=== PATIENT | female | born 1960 | race Caucasian/White ===

== ENCOUNTER 2018-09-26 17:44 | Inpatient (IN) | payer OTHER ==
--- NOTE | 2018-09-26 12:16 | R.PREADM ---
SCREENING DATE AND TIME 09/26/2018 11:07 (CDT) ANTICIPATED REHAB ADMISSION DATE 09/28/2018 REFERRING FACILITY [facility] REFERRAL DATE AND TIME 09/25/2018 15:14 (CDT) REFERRAL ROOM# [id number] ACUTE ADMIT DATE 09/22/2018 HOSPITALIZED IN LAST 60 DAYS? No Previous Rehabilitation(s): No. ACUTE MED SPA MANAGER/DC WIND TECHNICIAN [facility] REFERRING PHYSICIAN Dr Herrera REHAB FACILITY [facility] CLINICAL LIAISON Cristal Martinez PHYSICIAN REVIEWER Dr. Christiano Smith M.D. MR# [id number] NAME KWAN SHANE ADDRESS [address] [facility] PHONE ZIP [address] DATE OF 1960 AGE 58 SSN# [id number] GENDER female MARITAL STATUS RACE white ADMIT FROM 02 - [facility] PRE-HOSPITAL LIVING SETTING 01 - Home (private home/apt. board/care, assisted living, [facility], transitional living) HOME TYPE AND DETAILS Type of home: single family house # of steps to enter the residence: 3 steps at back of residence # of levels in the residence: 1 PRE-HOSPITAL LIVING WITH Family/Relatives FAMILY SUPPORT Yes PRIMARY FAMILY CONTACT NAME Cj Shane PRIMARY FAMILY CONTACT PHONE [phone] PRIMARY FAMILY CONTACT RELATIONSHIP 1ST EMERGENCY CONTACT Cj Shane 1ST CONTACT PHONE [phone] 1ST CONTACT RELATIONSHIP 2ND EMERGENCY CONTACT Abdi Ellis 2ND CONTACT PHONE [phone] 2ND CONTACT RELATIONSHIP Son PHONE 2ND CONTACT ON ADM.? no PATIENT EMPLOYMENT STATUS Not Working PATIENT EMPLOYER No Employer PAYOR INFORMATION: 1ST PAYOR NAME Martin 1ST PAYOR AUTHORIZATION# [id number] 1ST PAYOR UPDATE DUE 10/09/2018 1ST PAYOR INJURY/ILLNESS DUE TO ACCIDENT? No ANOTHER GREEN PARTY RESPONSIBLE? No PRIMARY REHAB/ACUTE DIAGNOSIS: Sponddylolisthesis at L4-5 with Bilateral facet joint degeneration, severe spinal stenosis ONSET DATE 09/22/2018 REHAB IMPAIRMENT CATEGORY (BATOOL): 04 Traumatic spinal cord injury (TSCI) MEETS 60% rule PRIMARY DIAGNOSIS-RELATED SURGERIES: INTERVENTIONS: - DVT/PE Activity management Labs Medications - GERD Altered diet Medications RISK FOR COMPLICATIONS: - GERD Pain Alteration in sleep Aspiration GERD SUMMARY OF ACUTE HOSPITALIZATION: Pt. is a 58 yo Right-handed white female. She has past medical history significant for Sponddylolisthesis at L4-5 with Bilateral facet joint de generation, severe spinal stenosis that failed conservative treatment. Pre-morbidly, Pt. was independent/mod-I in Self-Care and Locomotion; and she had good Endurance, Safe ty Awareness, Transfers Control, Balance, Social Cognition, and Communication. Currently, she has deficits of Self-Care, Transfers Control, Locomotion, Balance, and Safety Awarenes s. Pt. is now referred to [facility] for acute in-patient rehabilitation in order to maximize patient's functional independence in activities of daily living, strength, ROM, and mobi lity. Patient has realistic goal of being discharged at assistance level 6-Catarina to reside at Home with Fam oracio/Relatives. PAST MEDICAL HISTORY Arthritis Cancer - HCC GERD PAST SURGICAL HISTORY: COLONOSCOPY HYSTERECTOMY Cholecystectomy Left Knee Sx Right Wrist Sx MEDICATION ALLERGIES: No Known Drug Allergies (NKDA) ENVIRONMENTAL ALLERGIES: None Known - Substance Allergies None Known - Other Allergies None Known CODE STATUS: Do not resuscitate(DNR) WEIGHT/HEIGHT/BMI: WEIGHT 138 lbs HEIGHT 5' 5" BMI 23 DIET: - Diet Type Regular - Diet - Solid Texture Regular - Diet - Liquid Texture Regular - Tube Feed N/A SKIN DIAGRAM: Incision on Back; extent - small; stage - NS(Not Stageable). Treatment - Per Physician's Orders. REVIEW OF SYSTEMS: - Gen Alert and awake Lying in bed No apparent distress Oriented to: person, time, and place - Vital Signs Vital signs stable, afebrile - CVS RRR VITAL SIGNS Temperature: 97.4 F SBP/DBP: 112/54 Pulse: 88 Resp: 18 Vital signs stable, afebrile MEDICATIONS/TREATMENT: Other- See attached MAR (Medication Administration Record) [id number].pdf. CURRENT SPHINCTER CONTROL: Pre-hospital bladder status: continent Pre-hospital bowel status: continent DETAILED CURRENT FUNCTIONAL STATUS: - Walking score based on distance walked: 2(9829ft) FUNCTIONAL STATUS: - Self-Care A. Eating Ind sup B. Grooming Ind sup C. Bathing Ind modA D. Dressing - Upper Ind modA E. Dressing - Lower Ind modA F. Toileting Ind modA - Sphincter Control G. Bladder control Ind Catarina H. Bowel control Ind Catarina - Transfers Control I. Bed/Chair/Wheelchair Ind modA J. Toilet Ind modA K. Tub/Shower Ind modA - Locomotion L. Walk/Wheelchair (W) Ind modA M. Stairs Ind ADNO - Communication N. Comprehension (B) Catarina sup O. Expression (B) Catarina sup - Social Cognition P. Social Interaction Catarina sup Q. Problem Solving Catarina sup R. Memory Ind Catarina - Endurance Good - Balance Good - Safety Awareness Good CURRENT FUNC. DEFICITS: Self-Care, Transfers Control, Communication, Social Cognition, and Locomotion THERAPY NOTES FROM ACUTE CARE: Attached. SPECIAL NEEDS: - Safety Concerns Skin breakdown precautions needed due to skin breakdown risk PATIENT NEEDS ACTIVE AND ONGOING THERAPEUTIC INTERVENTION OF MULTIPLE THERAPY DISCIPLINES, INCLUDING: - Dietary and Nutrition Adequate Nutrition. Nutritional Education. Nutritional Supplements. PATIENT NEEDS CLOSE MEDICAL SUPERVISION BY A REHABILITATION PHYSICIAN FOR: Coordination of Treatment Team Post-Op Complications Wound Care PATIENT REQUIRES 24X7 REHAB NURSING FOR MEDICAL AND FUNCTIONAL MGT. OF THE FOLLOWING DEFICITS: ADL's Ambulation Bowel and Bladder Management Cognition Communication Disease Management Medication Management Patient/Family Education Providing Safe Environment Skin Integrity Transfers PATIENT REQUIRES INTENSIVE, COORDINATED INTERDISCIPLINARY APPROACH TO REHAB: Arranging Home Equipment/Services Discharge Planning Family Intervention/Training Iron Handler/Case Management PATIENT REHAB POTENTIAL: Ai SHANE is able and expected to receive 3 hours of individualized therapy daily on at least 5 of every 7 days DMarco SHANE's prognosis for significant practical improvement within a reasonable period of time appears G ood Expected level of measurable improvement will be of a practical value to DMarco SHANE's functional capacity or adaptations to impairments Has a viable Discharge Plan Medically appropriate; condition is sufficiently stable to participate in intensive rehab program DISCHARGE PLAN: - Estimated Length of Stay (days) 27. - Consensus on plan Discharge plan has been discussed with primary caregiver. Patient/Family is in agreement with the paul n. Primary caregiver is in agreement with the plan. - Patient/Family Goals Return home with assistance. - Planned Living Setting Upon Discharge Home, to live with Family/Relatives. - N/A Patient is a 58 year old female that lived in a one story home wtih her . Other than being in severe pain, she was very active. She tried multiple areas of improvement and was unsuccessful, the refore Dr. Herrera performed surgery that included a fusion and decompression. The patient tolerated th e surgery very well but to to the debilitation prior to the surgery and the surgery itself, it is nec essary for the patient to come to rehab in order to reagin her strength prior to discharging home. S he is now medically stable but in need of 24-hour nursing, doctor supervision and to participate in 3 hours of therapy a day/15 hours per week and receive care with an intensive interdisciplinary approach. RECOMMENDED CARE LEVEL: IRF RECOMMENDATION DETAILS: Recommended Admission to Comprehensive Rehabilitation Program to Increase Functional [place] SCREENER'S COMPLETENESS CONFIRMATION: - Screening Confirmation The patient data collection on this preadmission screening form is finished PHYSICIANS REVIEW AND ADMISSION DETERMINATION Admit - Based on my review of the Pre-Admission Screening results, in my medical judgment and experie nce, I concur with the findings and recommend admission to [facility], as this patient requires an IRF level of care. SIGNATURE PANEL: Clinical Liaison - [electronically] signed by Summer Perez Pawn Shop Keeper on 09/26/2018 at 12:06 (C DT) Varnish Supervisor - [electronically] signed by Cristal Nevarez RN on 09/26/2018 at 12:18 (CDT) Physician Reviewer - /___/ :___
--- NOTE | 2018-09-26 13:16 | R.PREADM ---
SCREENING DATE AND TIME 09/26/2018 12:50 (CDT) ANTICIPATED REHAB ADMISSION DATE 09/26/2018 REFERRING FACILITY [facility] REFERRAL DATE AND TIME 09/26/2018 12:50 (CDT) REFERRAL ROOM# [id number] ACUTE ADMIT DATE 09/22/2018 HOSPITALIZED IN LAST 60 DAYS? No Previous Rehabilitation(s): No. ACUTE TERRITORY SERVICE REPRESENTATIVE/DC VALUE STREAM COACH [facility] REFERRING PHYSICIAN Dr Herrera REHAB FACILITY [facility] CLINICAL LIAISON Cristal Martinez PHYSICIAN REVIEWER Dr. Christiano Smith M.D. MR# [id number] NAME KWAN SHANE ADDRESS [address] [facility] PHONE ZIP [address] DATE OF 1960 AGE 58 SSN# [id number] GENDER female MARITAL STATUS RACE white ADMIT FROM 02 - [facility] PRE-HOSPITAL LIVING SETTING 01 - Home (private home/apt. board/care, assisted living, prison, transitional living) HOME TYPE AND DETAILS Type of home: single family house # of steps to enter the residence: 3 steps at back of residence # of levels in the residence: 1 PRE-HOSPITAL LIVING WITH Family/Relatives FAMILY SUPPORT Yes PRIMARY FAMILY CONTACT NAME Cj Shane PRIMARY FAMILY CONTACT PHONE [phone] PRIMARY FAMILY CONTACT RELATIONSHIP 1ST EMERGENCY CONTACT Cj Shane 1ST CONTACT PHONE [phone] 1ST CONTACT RELATIONSHIP 2ND EMERGENCY CONTACT Abdi Ellis 2ND CONTACT PHONE [phone] 2ND CONTACT RELATIONSHIP Son PHONE 2ND CONTACT ON ADM.? no PATIENT EMPLOYMENT STATUS Not Working PATIENT EMPLOYER No Employer PAYOR INFORMATION: 1ST PAYOR NAME Martin 1ST PAYOR AUTHORIZATION# [id number] 1ST PAYOR UPDATE DUE 10/09/2018 1ST PAYOR INJURY/ILLNESS DUE TO ACCIDENT? No ANOTHER CONSTITUTION PARTY RESPONSIBLE? No PRIMARY REHAB/ACUTE DIAGNOSIS: Sponddylolisthesis at L4-5 with Bilateral facet joint degeneration, severe spinal stenosis ONSET DATE 09/22/2018 REHAB IMPAIRMENT CATEGORY (BATOOL): 04 Traumatic spinal cord injury (TSCI) MEETS 60% rule PRIMARY DIAGNOSIS-RELATED SURGERIES: INTERVENTIONS: - DVT/PE Activity management Labs Medications - GERD Altered diet Medications RISK FOR COMPLICATIONS: - GERD Pain Alteration in sleep Aspiration GERD SUMMARY OF ACUTE HOSPITALIZATION: Pt. is a 58 yo Right-handed white female. She has past medical history significant for Sponddylolisthesis at L4-5 with Bilateral facet joint de generation, severe spinal stenosis that failed conservative treatment. Pre-morbidly, Pt. was independent/mod-I in Locomotion and Self-Care; and she had good Endurance, Safe ty Awareness, Transfers Control, Balance, Social Cognition, and Communication. Currently, she has deficits of Self-Care, Transfers Control, Locomotion, Balance, and Safety Awarenes s. Pt. is now referred to [facility] for acute in-patient rehabilitation in order to maximize patient's functional independence in activities of daily living, strength, ROM, and mobi lity. Patient has realistic goal of being discharged at assistance level 6-Catarina to reside at Home with Fam oracio/Relatives. PAST MEDICAL HISTORY Arthritis Cancer - HCC GERD PAST SURGICAL HISTORY: COLONOSCOPY HYSTERECTOMY Cholecystectomy Left Knee Sx Right Wrist Sx MEDICATION ALLERGIES: No Known Drug Allergies (NKDA) ENVIRONMENTAL ALLERGIES: None Known - Substance Allergies None Known - Other Allergies None Known CODE STATUS: Do not resuscitate(DNR) WEIGHT/HEIGHT/BMI: WEIGHT 138 lbs HEIGHT 5' 5" BMI 23 DIET: - Diet Type Regular - Diet - Solid Texture Regular - Diet - Liquid Texture Regular - Tube Feed N/A SKIN DIAGRAM: Incision on Back; extent - small; stage - NS(Not Stageable). Treatment - Per Physician's Orders. REVIEW OF SYSTEMS: - Gen Alert and awake Lying in bed No apparent distress Oriented to: person, time, and place - Vital Signs Vital signs stable, afebrile - CVS RRR VITAL SIGNS Temperature: 97.4 F SBP/DBP: 112/54 Pulse: 88 Resp: 18 Vital signs stable, afebrile MEDICATIONS/TREATMENT: Other- See attached MAR (Medication Administration Record) [id number].pdf. CURRENT SPHINCTER CONTROL: Pre-hospital bladder status: continent Pre-hospital bowel status: continent DETAILED CURRENT FUNCTIONAL STATUS: - Walking score based on distance walked: 2(5149ft) FUNCTIONAL STATUS: - Self-Care A. Eating Ind sup B. Grooming Ind sup C. Bathing Ind modA D. Dressing - Upper Ind modA E. Dressing - Lower Ind modA F. Toileting Ind modA - Sphincter Control G. Bladder control Ind Catarina H. Bowel control Ind Catarina - Transfers Control I. Bed/Chair/Wheelchair Ind modA J. Toilet Ind modA K. Tub/Shower Ind modA - Locomotion L. Walk/Wheelchair (W) Ind modA M. Stairs Ind ADNO - Communication N. Comprehension (B) Catarina sup O. Expression (B) Catarina sup - Social Cognition P. Social Interaction Catarina sup Q. Problem Solving Catarina sup R. Memory Ind Catarina - Endurance Good - Balance Good - Safety Awareness Good CURRENT FUNC. DEFICITS: Self-Care, Transfers Control, Communication, Social Cognition, and Locomotion THERAPY NOTES FROM ACUTE CARE: Attached. SPECIAL NEEDS: - Safety Concerns Skin breakdown precautions needed due to skin breakdown risk PATIENT NEEDS ACTIVE AND ONGOING THERAPEUTIC INTERVENTION OF MULTIPLE THERAPY DISCIPLINES, INCLUDING: - Dietary and Nutrition Adequate Nutrition. Nutritional Education. Nutritional Supplements. PATIENT NEEDS CLOSE MEDICAL SUPERVISION BY A REHABILITATION PHYSICIAN FOR: Coordination of Treatment Team Post-Op Complications Wound Care PATIENT REQUIRES 24X7 REHAB NURSING FOR MEDICAL AND FUNCTIONAL MGT. OF THE FOLLOWING DEFICITS: ADL's Ambulation Bowel and Bladder Management Cognition Communication Disease Management Medication Management Patient/Family Education Providing Safe Environment Skin Integrity Transfers PATIENT REQUIRES INTENSIVE, COORDINATED INTERDISCIPLINARY APPROACH TO REHAB: Arranging Home Equipment/Services Discharge Planning Family Intervention/Training Service Station Console Operator/Case Management PATIENT REHAB POTENTIAL: Ai SHANE is able and expected to receive 3 hours of individualized therapy daily on at least 5 of every 7 days DMarco SHANE's prognosis for significant practical improvement within a reasonable period of time appears G ood Expected level of measurable improvement will be of a practical value to DMarco SHANE's functional capacity or adaptations to impairments Has a viable Discharge Plan Medically appropriate; condition is sufficiently stable to participate in intensive rehab program DISCHARGE PLAN: - Estimated Length of Stay (days) 27. - Consensus on plan Discharge plan has been discussed with primary caregiver. Patient/Family is in agreement with the paul n. Primary caregiver is in agreement with the plan. - Patient/Family Goals Return home with assistance. - Planned Living Setting Upon Discharge Home, to live with Family/Relatives. - N/A Patient is a 58 year old female that lived in a one story home wtih her . Other than being in severe pain, she was very active. She tried multiple areas of improvement and was unsuccessful, the refore Dr. Herrera performed surgery that included a fusion and decompression. The patient tolerated th e surgery very well but to to the debilitation prior to the surgery and the surgery itself, it is nec essary for the patient to come to rehab in order to reagin her strength prior to discharging home. S he is now medically stable but in need of 24-hour nursing, doctor supervision and to participate in 3 hours of therapy a day/15 hours per week and receive care with an intensive interdisciplinary approach. RECOMMENDED CARE LEVEL: IRF RECOMMENDATION DETAILS: Recommended Admission to Comprehensive Rehabilitation Program to Increase Functional [place] SCREENER'S COMPLETENESS CONFIRMATION: - Screening Confirmation The patient data collection on this preadmission screening form is finished PHYSICIANS REVIEW AND ADMISSION DETERMINATION Admit - Based on my review of the Pre-Admission Screening results, in my medical judgment and experie nce, I concur with the findings and recommend admission to [facility], as this patient requires an IRF level of care. SIGNATURE PANEL: Clinical Liaison - [electronically] signed by Dr. Christiano Smith M.D. on 09/26/2018 at 13:16 (CDT) Physician Reviewer - [electronically] signed by Dr. Christiano Smith M.D. on 09/26/2018 at 13:19 (CDT )
--- OUTSIDE RECORDS SUMMARY | 2018-09-26 17:50 | XMS REPORT | Clinical Summary ---
:1960 Author Organization [facility] Address [address] [place] [address] Care Team Providers Name Role Phone Pacheco Peralta MD Primary Care Provider Allergies No Known Allergies Medications Medication Sig Dispensed Refills Start Date End Date Status HYDROcodone-acetamin Take 1 tablet 0 09/26/2017 Active ophen (NORCO) by mouth every 7.5-325 mg per 6 (six) hours tablet as needed (pain). Every 6-8 hours as needed azelastine (OPTIVAR) Administer 1 0 09/26/2017 Active 0.05 % ophthalmic drop to both solution eyes daily as needed. meloxicam (MOBIC) 15 Take 15 mg by 0 09/13/2018 Active mg tablet mouth daily. MULTIVITAMIN ORAL Take 1 tablet 0 Active by mouth daily. Lactobac Take 1 capsule 0 Active no.41/Bifidobact by mouth daily. no.7 (PROBIOTIC-10 ORAL) ascorbic acid Take 1 tablet 0 Active (LEONARDO-C ORAL) by mouth daily. caffeine 200 mg Take 200 mg by 0 Active tablet mouth 2 (two) times a day as needed for headaches. docusate sodium Take 1 capsule 30 capsule 0 09/22/2018 10/23/19 Active (COLACE) 100 MG (100 mg total) 19 capsule by mouth 2 (two) times a day for 30 days. methocarbamol Take 1 tablet 40 tablet 3 09/22/2018 Active (ROBAXIN-750) 750 MG (750 mg total) tablet by mouth every 8 (eight) hours as needed for muscle spasms for up to 40 doses. methocarbamol Take 750 mg by 0 Active (ROBAXIN) 750 MG mouth 3 (three) tablet times a day. Takes 2-3 times daily ergocalciferol Take 50,000 0 Active (VITAMIN D2) 50,000 Units by mouth unit capsule once a week. On Tuesday cyclobenzaprine 0 10/28/2017 09/21/19 Discontinued (FLEXERIL) 10 mg 19 tablet oxyCODone-acetaminop TAKE ONE (1) 0 10/03/2017 09/21/19 Discontinued hen (PERCOCET) TABLET(S) BY 19 10-325 mg per tablet MOUTH EVERY FOUR TO SIX HOURS NEEDED FOR PAIN. methocarbamol TK 1 T PO TID 2 07/12/2018 09/23/19 Discontinued (ROBAXIN) 750 MG 19 tablet phentermine 0 09/05/2018 09/23/19 Discontinued (ADIPEX-P) 37.5 mg 19 tablet cholecalciferol, Take 1 tablet 0 09/23/19 Discontinued vitamin D3, (VITAMIN by mouth daily. 19 D3 ORAL) Active Problems Problem Noted Date Spondylolisthesis, lumbar region 09/22/2018 Encounters Date Type Specialty Care Team Description 09/22/2018 Anesthesia Event General Surgery Bernadine Reis FNP 09/22/2018 Surgery General Surgery Tristen Herrera, RIGHT LUMBAR FOUR - FIVE MD DIRECT LATERAL INTERBODY FUSION 09/22/2018 Hospital Encounter General Internal Tristen Herrera, Spondylolisthesis, lumbar region; - Medicine Spinal stenosis, lumbar region with neurogenic claudication 09/26/2018 Jorge Flores MD 09/20/2018 Pre-Admit Testing Pre-Admission Tristen Herrera, Preop testing ( Primary Appointment Testing MD Dx) 07/18/2018 Hospital Encounter Radiology Tristen Herrera, Spondylolisthesis of lumbar region 07/03/2018 Transcribe Orders Access Tristen Herrera, Spondylolisthesis of lumbar region (Primary Dx) 11/01/2017 Hospital Encounter Radiology Antolin See III, MD 11/01/2017 Office Visit Orthopedic Antolin See Arthritis of right wrist (Primary Dx); Surgery Samson HORN MD Primary osteoarthritis of first carpometacarpal joint of left hand after 09/25/2017 Immunizations Name Dates Previously Given Next Due Pneumococcal Polysaccharide 09/26/2018 Family History Medical History Relation Name Comments Heart disease Father Cancer Mother BREAST CA Relation Name Status Comments Father Alive Mother Social History Tobacco Use Types Packs/Day Years Used Date Current Every Day Smoker Cigarettes, Electronic Cigarettes 0.5 30 Smokeless Tobacco: Never Used Alcohol Use Drinks/Week oz/Week Comments Yes 15 Glasses of wine 9.0 WEEKLY Sex Assigned at Date Recorded Not on file Job Start Date Occupation Industry Not on file Not on file Not on file Travel History Travel Start Travel End No recent travel history available. Last Filed Vital Signs Vital Sign Reading Time Taken Blood Pressure 127/58 09/26/2018 11:09 AM CDT Pulse 84 09/26/2018 11:09 AM CDT Temperature 36.8 C (98.2 F) 09/26/2018 11:09 AM CDT Respiratory Rate 18 09/26/2018 11:09 AM CDT Oxygen Saturation 95% 09/26/2018 11:09 AM CDT Inhaled Oxygen Concentration - - Weight 63 kg (138 lb 14.4 oz) 09/22/2018 6:50 AM CDT Height 165.1 cm (5' 5") 09/22/2018 5:41 PM CDT Body Mass Index 23.11 09/22/2018 6:50 AM CDT Plan of Treatment Health Maintenance Due Date Last Done Comments BREAST CANCER SCREENING 2009 COLONOSCOPY SCREENING 2009 SHINGLES VACCINES (#1) 2009 INFLUENZA VACCINE 09/28/2018 Implants Implanted Type Area Soap Press Feeder Device Shelf Model / Serial Identifier Expiration / Lot Date Chip Canc Allograft Leader Crshd 15cc 0.1-4mm - [id number] - [id number] Human Right: MUSCULOSKELETAL 06/27/2021 [id number] / Implanted: Qty: 1 on 09/22/2018 by Tristen Herrera MD Tissue Spine TRANSPLANT [id number] / Implants Lumbar FOUNDATION [id number] Kit Bone Graft Lumbar Tapered 2.8mm Small Infuse - [id number] Human Right: [employer] SPINAL 05/29/2019 [id number] / Implanted: Qty: 1 on 09/22/2018 by Tristen Herrera MD Tissue Spine AND BIOLOGICS / Implants Lumbar [id number] Kit Bone Graft Thread Interbody Extra-Small Titanium Infuse - [id number] Human Right: [employer] SPINAL 08/28/2019 [id number] / Implanted: Qty: 1 on 09/22/2018 by Tristen Herrera MD Tissue Spine AND BIOLOGICS / Implants Lumbar [id number] Screw [id number] Cn Mas 6.5x45 Cc - [id number] IPM Posterio [employer]TRONIC SOFAMOR [id number] / Implanted: Qty: 2 on 09/22/2018 by Tristen Herrera MD IMPLANT r: Spine DANEK / DEVICES Lumbar VENDOR LOT NA Screw [id number] Cn Mas 6.5x50 Cc - [id number] IPM Posterio [employer] SOFAMOR [id number] / Implanted: Qty: 2 on 09/22/2018 by Tristen Herrera MD IMPLANT r: Spine DANEK / DEVICES Lumbar VENDOR LOT NA [place] [id number] 4.75 Ccm Sextant 40mm - [id number] IPM Posterio [employer] SOFAMOR [id number] / Implanted: Qty: 1 on 09/22/2018 by Tristen Herrera MD IMPLANT r: Spine DANEK / DEVICES Lumbar VENDOR LOT NA [place] [id number] 4.75 Ccm Sextant 45mm - [id number] IPM Posterio [employer] SOFAMOR [id number] / Implanted: Qty: 1 on 09/22/2018 by Tristen Herrera MD IMPLANT r: Spine DANEK / DEVICES Lumbar VENDOR LOT NA Set Screw [id number] 4.75 Ti Ns Sxt Brk Off - [id number] IPM Posterio [employer] SOFAMOR [id number] / Implanted: Qty: 4 on 09/22/2018 by Tristen Herrera MD IMPLANT r: Spine DANEK / DEVICES Lumbar VENDOR LOT NA Cage Intrbdy [place] Imp Peek 6deg [id number] - [id number] Spinal Right: [employer]TR[employer] SPINAL 09/30/2022 [id number] / Implanted: Qty: 1 on 09/22/2018 by Tristen Herrera MD Implants Spine AND BIOLOGICS / Lumbar [id number] Procedures Procedure Name Priority Date/Time Associated Diagnosis Comments ESTIMATED GFR Routine 09/25/2018 5:14 Results for this AM CDT procedure are in the results section. BASIC METABOLIC PANEL Routine 09/25/2018 5:14 Results for this AM CDT procedure are in the results section. HC COMPLETE BLD COUNT Routine 09/25/2018 5:14 Results for this W/AUTO DIFF AM CDT procedure are in the results section. ESTIMATED GFR Routine 09/24/2018 5:40 Results for this AM CDT procedure are in the results section. MAGNESIUM LEVEL Routine 09/24/2018 5:40 Results for this AM CDT procedure are in the results section. BASIC METABOLIC PANEL Routine 09/24/2018 5:40 Results for this AM CDT procedure are in the results section. HC COMPLETE BLD COUNT Routine 09/24/2018 5:40 Results for this W/AUTO DIFF AM CDT procedure are in the results section. ESTIMATED GFR Routine 09/23/2018 6:00 Results for this AM CDT procedure are in the results section. BASIC METABOLIC PANEL Routine 09/23/2018 6:00 Results for this AM CDT procedure are in the results section. HC COMPLETE BLD COUNT Routine 09/23/2018 6:00 Results for this W/AUTO DIFF AM CDT procedure are in the results section. [place] FL < 1 HOUR Routine 09/22/2018 2:04 Results for this PM CDT procedure are in the results section. MAGNESIUM LEVEL STAT 09/22/2018 12:50 Results for this PM CDT procedure are in the results section. GLUCOSE LEVEL, STAT 09/22/2018 12:50 Results for this SYRINGE PM CDT procedure are in the results section. IONIZED CALCIUM, STAT 09/22/2018 12:50 Results for this ARTERIAL PM CDT procedure are in the results section. SODIUM LEVEL, SYRINGE STAT 09/22/2018 12:50 Results for this PM CDT procedure are in the results section. HEMOGLOBIN, SYRINGE STAT 09/22/2018 12:50 Results for this PM CDT procedure are in the results section. POTASSIUM, SYRINGE STAT 09/22/2018 12:50 Results for this PM CDT procedure are in the results section. ARTERIAL BLOOD GAS, STAT 09/22/2018 12:50 Results for this CORRECTED PM CDT procedure are in the results section. URINALYSIS SCREEN AND Timed 09/22/2018 8:31 Spondylolisthesis, Results for this MICROSCOPY, WITH AM CDT lumbar region procedure are in REFLEX TO CULTURE Spinal stenosis, the results lumbar region with section. neurogenic claudication URINE CULTURE Timed 09/22/2018 8:31 Results for this AM CDT procedure are in the results section. MT AN ELECTIVE Routine 09/22/2018 8:26 ENDOTRACHEAL AIRWAY AM CDT Procedure Note - Eros Sierra CRNA - 09/22/2018 8:26 AM CDT Airway Date/Time: 09/22/2018 8:16 AM Performed by: Eros Sierra CRNA Authorized by: Cristóbal Persaud MD Location: [place] Urgency: Elective Difficult Airway: No Preoxygenated with 100% O2: Yes C-spine Precautions Maintained Throughout: Yes Mask Ventilation: Easy mask Final Airway Type: Endotracheal airway Final Endotracheal Airway: ETT Technique Used: Direct laryngoscopy Insertion Site: Oral Blade Type: Jalloh Laryngoscope Blade/Videolaryngoscope Blade Size: 2 ETT Size (mm): 7.0 Measured from: Lips ETT to Lips (cm): 22 Placement Verified by: CO2 detection, direct visualization and equal breath sounds Laryngoscopic view: Grade I - full view of glottis Rapid Sequence Induction (RSI): No Modified RSI: No Number of Attempts at Approach: 1 POC GLUCOSE Routine 09/22/2018 7:08 Results for this AM CDT procedure are in the results section. ECG PRE/POST OP Routine 09/20/2018 3:13 Preop testing Results for this PM CDT procedure are in the results section. ESTIMATED GFR Routine 09/20/2018 2:41 Results for this PM CDT procedure are in the results section. TYPE AND SCREEN Routine 09/20/2018 2:41 Preop testing Results for this PM CDT procedure are in the results section. BASIC METABOLIC Routine 09/20/2018 2:41 Preop testing Results for this PANEL PM CDT procedure are in the results section. HC COMPLETE BLD Routine 09/20/2018 2:41 Preop testing Results for this COUNT W/AUTO DIFF PM CDT procedure are in the results section. CT LUMBAR SPINE Routine 07/18/2018 1:01 Spondylolisthesis of Results for this WO CONTRAST PM CDT lumbar region procedure are in the results section. XR WRIST 3+ VW Routine 11/01/2017 1:57 Pain in both wrists Results for this RIGHT PM CDT procedure are in the results section. XR UPPER Routine 10/12/2017 3:13 Results for this EXTREMITY PM CDT procedure are in EXTERNAL STUDY the results section. after 09/25/2017 Results Estimated GFR (09/25/2018 5:14 AM CDT)Only the most recent of4 resultswithin the time period is included. Estimated GFR >=90 mL/min/1.73 [facility] Comment: m2 [place] [facility] G1 >=90 Normal or high G2 60-89Mildly decreased [id number] to moderately decreased V9w65-91Hdehwpabdr to severely decreased G4 15-29Severely decreased G5 <15Kidney failure The eGFR was calculated using the Chronic Kidney Disease Epidemiology Collaboration (CKD-EPI) equation. Interpretation is based on recommendations of the National Kidney Foundation-Kidney Disease Outcomes Quality Initiative (NKF-KDOQI) published in 2014. Specimen Plasma specimen Performing Organization Address City/State/Zipcode Phone Number [facility] DEPARTMENT OF PATHOLOGY [address] [place] [address] AND GENOMIC MEDICINE [facility] [address] [place] [address] HOSPITAL CBC with platelet and differential (09/25/2018 5:14 AM CDT)Only the most recent of4 resultswithin the time period is included. Pathologist [facility] WBC 9.0 4.5 - 11.0 k/uL [facility] RBC 3.13 (L) 4.20 - 5.50 [facility] m/uL [facility] HGB 11.0 (L) 12.0 - 16.0 [facility] g/dL [facility] HCT 32.7 (L) 37.0 - 47.0 % [facility] MCV 104.5 (H) 82.0 - 100.0 fL [facility] MCH 35.1 (H) 27.0 - 34.0 pg [facility] MCHC 33.6 31.0 - 37.0 [facility] g/dL [facility] RDW - SD 47.4 37.0 - 55.0 fL [facility] MPV 13.0 (H) 6.9 - 11.0 fL [facility] Platelet count 131 (L) 150 - 400 K/uL [facility] Nucleated RBC 0.00 /100 WBC [facility] Neutrophils 64.9 39.0 - 69.0 % [facility] Lymphocytes 17.9 (L) 25.0 - 45.0 % [facility] Monocytes 14.3 (H) 0.0 - 10.0 % [facility] Eosinophils 1.8 0.0 - 5.0 % [facility] Basophils 0.4 0.0 - 1.0 % [facility] Immature granulocytes 0.7 0.0 - 1.0 % [facility] Specimen Blood Performing Organization Address City/[facility]/Zipcode Phone Number [facility] DEPARTMENT OF PATHOLOGY [address] [place] [address] Basic metabolic panel (09/25/2018 5:14 AM CDT)Only the most recent of4 resultswithin the time period is included. Sodium 137 135 - 148 mEq/L [facility] Potassium 3.8 3.5 - 5.0 mEq/L [facility] Chloride 96 (L) 98 - 112 mEq/L [facility] CO2 30 24 - 31 mEq/L [facility] Anion gap 11@ANIO 7 - 15 mEq/L [facility] BUN 5 (L) 6 - 20 mg/dL [facility] Creatinine 0.49 (L) 0.50 - 0.90 mg/dL [facility] Glucose 131 (H) 65 - 99 mg/dL [facility] Calcium 9.4 8.3 - 10.2 mg/dL [facility] Specimen Plasma specimen Performing Organization Address [facility] Unit[facility] Phone Number [facility] DEPARTMENT OF PATHOLOGY [address] [place] [address] [place] [address] HOSPITAL Magnesium level (09/24/2018 5:40 AM CDT)Only the most recent of2 resultswithin the time period is included. Magnesium 1.4 (L) 1.6 - 2.6 mg/dL [facility] Specimen Plasma specimen Performing Organization Address City/State/Zipcode Phone Number [facility] DEPARTMENT OF PATHOLOGY [address] [place] [address] [place] [address] HOSPITAL [place] < 1 Hour (09/22/2018 2:04 PM CDT) Specimen Narrative Performed At EXAMINATION:[place] 1 HOUR [facility] CLINICAL HISTORY:Pain IMPRESSION: Fluoroscopy was provided. No radiologist present.Please see procedure report for discussion of procedure, findings. [id number] Procedure Note Hm Interface, Radiology Results Incoming - 09/22/2018 2:09 PM CDT EXAMINATION: [place] 1 HOUR CLINICAL HISTORY: Pain IMPRESSION: Fluoroscopy was provided. No radiologist present. Please see procedure report for discussion of procedure, findings. [id number] Performing Organization Address City/State/Zipcode Phone Number [facility] [address] [place] [address] Sodium level, syringe (09/22/2018 12:50 PM CDT) Sodium, syringe 134 125 - 148 mEq/L [facility] Specimen Blood Performing Organization Address City/[facility]/Zipcode Phone Number [facility] DEPARTMENT OF PATHOLOGY [address] [place] [address] Potassium, syringe (09/22/2018 12:50 PM CDT) Potassium, syringe 4.0 3.5 - 5.0 mEq/L [facility] Specimen Blood Performing Organization Address City/[facility]/Zipcode Phone Number [facility] DEPARTMENT OF PATHOLOGY [address] [place] [address] Ionized calcium, arterial (09/22/2018 12:50 PM CDT) Ionized calcium, 1.07 (L) 1.11 - 1.32 [facility] arterial mmol/L [facility] Specimen Blood Performing Organization Address City/[facility]/Zipcode Phone Number [facility] DEPARTMENT OF PATHOLOGY [address] [place] [address] Hemoglobin, syringe (09/22/2018 12:50 PM CDT) Hemoglobin, syringe 12.0 12.0 - 16.0 g/dL [facility] Specimen Blood Performing Organization Address City/[facility]/Zipcode Phone Number [facility] DEPARTMENT OF PATHOLOGY [address] [place] [address] [place] [address] HOSPITAL Glucose level, syringe (09/22/2018 12:50 PM CDT) Glucose, syringe 143 (H) 65 - 99 mg/dL [facility] Specimen Blood Performing Organization Address City/[facility]/Zipcode Phone Number [facility] DEPARTMENT OF PATHOLOGY [address] [place] [address] Arterial blood gas, corrected (09/22/2018 12:50 PM CDT) pH, arterial 7.37 7.35 - 7.45 [facility] pCO2, arterial 41 35 - 45 mmHg [facility] pO2, arterial 415 (H) 80 - 90 mmHg [facility] Temperature, Celsius 36.6 Degrees C [facility] O2 saturation, 100 95 - 100 % [facility] arterial [facility] pH, arterial 7.38 [facility] corrected [facility] pCO2, arterial 40 mmHg [facility] corrected [facility] pO2, arterial 413 mmHg [facility] Base excess, arterial -2 -2 - 2 mEq/L [facility] Specimen Blood Performing Organization Address City/[facility]/Zipcode Phone Number [facility] DEPARTMENT OF PATHOLOGY [address] [place] [address] Urinalysis screen and microscopy, with reflex to culture (09/22/2018 8:31 AM CDT) Specimen site Catheterized [facility] Color, UA Yellow [facility] Appearance, UA Clear [facility] Specific gravity, UA 1.013 1.001 - 1.030 [facility] pH, UA 6.0 5.0 - 9.0 [facility] Protein, UA Negative Negative [facility] Glucose, UA Negative Negative [facility] Ketones, UA Negative Negative [facility] Bilirubin, UA Negative Negative [facility] Blood, UA Small (A) Negative [facility] Nitrite, UA Negative Negative [facility] Urobilinogen, UA <2.0 <2.0 E.U./dL [facility] Leukocyte esterase, Negative Negative [facility] Round epithelial <1 0 - 5 /HPF [facility] cells, UA [facility] WBC, UA <1 0 - 4 /HPF [facility] RBC, UA 2 0 - 5 /HPF [facility] Bacteria, UA None seen None seen [facility] Yeast, UA None seen [facility] Yeast with None seen [facility] pseudohyphae, UA [facility] Specimen Urine - Urine, catheter Performing Organization Address City/State/Zipcode Phone Number [facility] DEPARTMENT OF PATHOLOGY [address] [place] [address] Urine culture (09/22/2018 8:31 AM CDT) Urine culture SEE COMMENTComment: [facility] Bacteriuria screen [facility] negative. Specimen Performing Organization Address City/[facility]/Zipcode Phone Number [facility] DEPARTMENT OF PATHOLOGY [address] [place] [address] POC glucose (09/22/2018 7:08 AM CDT) POC glucose 115 (H) 65 - 99 mg/dL [facility] Comment: [facility] Meter ID: [id number] Criminal Justice Lawyer: Reese Chappell Specimen Performing Organization Address City/State/Zipcode Phone Number [facility] DEPARTMENT OF PATHOLOGY [address] [place] [address] ECG Pre/Post Op (09/20/2018 3:13 PM CDT) Ventricular rate 103 [facility] Atrial rate 103 [facility] MT interval 144 [facility] QRSD interval 86 [facility] QT interval 350 [facility] QTC interval 458 [facility] P axis 1 57 [facility] QRS axis 1 10 [facility] T wave axis 37 [facility] EKG impression Sinus [facility] tachycardia-Possible Left atrial enlargement-RSR' or QR pattern in V1 suggests right ventricular conduction delay-Borderline ECG-No previous ECGs available-Electronicall y Signed By Melba Chaparro MD ([id number]) on 09/20/2018 5:38:52 PM Specimen Narrative Performed At Performing Organization Address City/State/Zipcode Phone Number [facility] [address] [place] [address] Type and screen (09/20/2018 2:41 PM CDT) ABO grouping O [facility] Rh type POS [facility] Antibody screen (gel) NEG [facility] Specimen Blood Performing Organization Address City/[facility]/Zipcode Phone Number [facility] DEPARTMENT OF PATHOLOGY [address] [place] [address] AND GENOMIC MEDICINE [facility] [address] Lumbar Spine Wo Contrast (07/18/2018 1:01 PM CDT) Specimen Narrative Performed At EXAMINATION:CT LUMBAR SPINE WO CONTRAST [facility] COMPARISON:None CLINICAL HISTORY:M43.16 Spondylolisthesislumbar region, M43.16 COMMENTS:Axial CT scan slices of the lumbar spine were obtained. Sagittal and coronal reconstructions were obtained. CT imaging was performed with iterative reconstruction technique and/or automated exposure control to reduce radiation dose. FINDINGS:L5-S1 shows mild disc bulge and facet disease. There is partial sacralization of L5. L4-5 shows considerable facet disease and moderate ligament flavum thickening. There is grade 1 anterior subluxation of L4 upon L5. There is a broad-based disc protrusion greater towards the left side with slight superior extension. There is moderate to severe canal stenosis. There is asymmetric narrowing of the left-sided foramen. L3-4 shows mild disc bulge. There is mild facet disease ligament flavum thickening. There is mild canal stenosis. L2-3 shows mild disc bulge and facet disease. L1-2 shows mild facet disease and minimal disc bulge. No definite acute fracture is identified. IMPRESSION:Degenerative change with canal stenosis most prominent at L4-5. [id number] Procedure Note Hm Interface, Radiology Results Incoming - 07/18/2018 1:42 PM CDT EXAMINATION: CT LUMBAR SPINE WO CONTRAST COMPARISON: None CLINICAL HISTORY: M43.16 Spondylolisthesis lumbar region, M43.16 COMMENTS: Axial CT scan slices of the lumbar spine were obtained. Sagittal and coronal reconstructions were obtained. CT imaging was performed with iterative reconstruction technique and/or automated exposure control to reduce radiation dose. FINDINGS: L5-S1 shows mild disc bulge and facet disease. There is partial sacralization of L5. L4-5 shows considerable facet disease and moderate ligament flavum thickening. There is grade 1 anterior subluxation of L4 upon L5. There is a broad-based disc protrusion greater towards the left side with slight superior extension. There is moderate to severe canal stenosis. There is asymmetric narrowing of the left-sided foramen. L3-4 shows mild disc bulge. There is mild facet disease ligament flavum thickening. There is mild canal stenosis. L2-3 shows mild disc bulge and facet disease. L1-2 shows mild facet disease and minimal disc bulge. No definite acute fracture is identified. IMPRESSION: Degenerative change with canal stenosis most prominent at L4-5. [id number] Performing Organization Address [facility]/[employer] Phone Number [facility] [address] [place] [address] XR Wrist 3+ Vw Right (11/01/2017 1:57 PM CDT) Specimen Narrative Performed At PA, lateral, and oblique views of the right wrist demonstrate apparent RADIANT previous proximal row carpectomy with collapse of capitate. 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 no acute abnormalities. Performing Organization Address [facility]/[employer] Phone Number [facility] [address] [place] [address] XR Upper Extremity External Study (10/12/2017 3:13 PM CDT) Specimen Narrative Performed At This exam was not acquired at a [facility] facility and has not been RADIANT interpreted by a [facility] Provider.The exam was imported into our imaging system for comparisons purposes. Performing Organization Address City/[employer]/Zipcode Phone Number [facility] [address] [place] [address] after 09/25/2017 Advance Directives Patient has advance care planning documents on file. For more information, please contact:[place] [address]
[2018-09-26 17:59] VITALS: BMI 23.1
[2018-09-26 18:26] LABS: Urine Appearance CLEAR; Urine Bilirubin NEGATIVE (NEG); Urine Blood NEGATIVE (NEG); Urine Color YELLOW; Urine Glucose NEGATIVE (NEG); Urine Protein NEGATIVE (NEG); Urine Urobilinogen 0.2 mg/dL (0.2-1.0)
[2018-09-26] MEDS ORDERED: HYDROCODONE/APAP 7.5/325 MG TAB PO PRN (18:35)
[2018-09-26 19:20] LABS: Urine Bacteria <20 /HPF (<20); Urine RBC <5 /HPF (NONE SEEN)
[2018-09-26 19:24] LABS: Urine Culture Reflex Order NOT NEEDED
[2018-09-26] MEDS: DOCUSATE NA 100 MG CAP PO SCH (19:39)
[2018-09-26] MEDS: METHOCARBAMOL 750 MG TAB PO PRN (20:57)
[2018-09-26] MEDS ORDERED: HOME MED 1 EA UNK OPTH PRN (21:11)
[2018-09-26] MEDS: TRAMADOL HCL 50 MG TAB PO PRN (21:17)
[2018-09-26] MEDS: GABAPENTIN 100 MG CAP PO SCH (21:17)
[2018-09-26] MEDS: APIXABAN 2.5 MG TABLET PO SCH (21:17)
[2018-09-26] MEDS ORDERED: HOME MED 1 EA UNK PO SCH (21:30)
[2018-09-27] MEDS: HYDROCODONE/APAP 10/325 TAB PO PRN ×5 (01:17→18:29)
[2018-09-27] MEDS: MELATONIN 3 MG TABLET PO PRN ×2 (01:18→20:01)
--- NOTE | 2018-09-27 02:51 | FAST ---
SHIFT START DATE/TIME: 09/26/2018 19:00 (CDT) SHIFT END DATE/TIME: 09/27/2018 07:00 (CDT) NAME KWAN AVILA DATE OF : 1960 DATE OF ADMISSION: 09/26/2018 17:45 (CDT) PHONE: AGE: 58 N# [id number] GENDER: Female ENCOUNTER PHYSICIAN: Dr. Christiano Smith M.D. 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 EATING: Activity did not occur on this shift EATING - SCORE: 0-UNK GROOMING: Wash, rinse, and dry hands GROOMING - STEP 1: Does the patient require the assistance of a person or device, or need extra time when grooming? Yes. GROOMING - STEP 2: Does the patient require the assistance of a helper? Yes. GROOMING - STEP 3: How much assistance does the patient require from the helper? Only prior equipment preparation/set up from the helper GROOMING - SCORE: 5-SUP BATHING: Activity did not occur on this shift BATHING - SCORE: 0-UNK DRESSING - UPPER BODY: Patient is not dressing in public clothing ARTICLES SCORE Total number of steps: 0 DRESSING - UPPER BODY - SCORE: 0-UNK DRESSING - LOWER BODY: Patient is not dressing in public clothing ARTICLES SCORE Total number of steps: 0 DRESSING - LOWER BODY - SCORE: 0-UNK TOILETING: TOILETING - STEP 1: Does the patient require the assistance of a person or device, or need extra time with toileting? Yes . TOILETING - STEP 2: Does the patient require the assistance of a helper? Yes. TOILETING - STEP 3: How much assistance does the patient require from the helper? Hands-on assistance from the helper TOILETING - STEP 4: Of the 3 tasks: 1) Adjusting clothing prior to use, 2) Cleansing of perineal area, 3) Adjusting clot denton after use; How many tasks does the patient perform WITHOUT assistance of the helper? Two tasks TOILETING - SCORE: 3-MOD BLADDER MANAGEMENT: BLADDER MANAGEMENT - STEP 1: Does the patient control the bladder completely and intentionally without equipment or devices or med ications, and is always continent? No. BLADDER MANAGEMENT - STEP 2: Does the patient require the assistance of a helper? Yes. BLADDER MANAGEMENT - STEP 3: How much assistance does the patient require from the helper? Only supervision, stand-by, cuing, or c oaxing BLADDER MANAGEMENT - SCORE: 5-SUP BOWEL MANAGEMENT: BOWEL MANAGEMENT - STEP 1: Does the patient control bowels completely and intentionally without equipment devices or medications AND is always continent? No. BOWEL MANAGEMENT - STEP 2: Does the patient require the assistance of a helper? No, patient requires medication for control such as stool softeners, suppositories, laxatives, enemas, or OTC medications BOWEL MANAGEMENT - SCORE: 6-LIZ TRANSFERS: BED, CHAIR, WHEELCHAIR: TRANSFERS: BED, CHAIR, WHEELCHAIR - STEP 1: Does the patient require assistance of a person or device, or need extra time with bed, chair, or whe elchair transfers? Yes. TRANSFERS: BED, CHAIR, WHEELCHAIR - STEP 2: Does the patient require the assistance of a helper? Yes. TRANSFERS: BED, CHAIR, WHEELCHAIR - STEP 3: How much assistance does the patient require from the helper? Lifting of the legs TRANSFERS: BED, CHAIR, WHEELCHAIR - STEP 4: How many legs does the patient require the helper to lift? both legs TRANSFERS: BED, CHAIR, WHEELCHAIR - SCORE: 3-MOD TRANSFERS: TOILET: TRANSFERS: TOILET - STEP 1: Does the patient require the assistance of a person or device, or need extra time with toilet transfe rs? Yes. TRANSFERS: TOILET - STEP 2: Does the patient require the assistance of a helper? Yes. TRANSFERS: TOILET - STEP 3: How much assistance does the patient require from the helper? Only supervision, cuing, coaxing, OR he lp to set out transfer equipment or to lock brakes and/or lift foot rests TRANSFERS: TOILET - SCORE: 5-SUP TRANSFERS: SHOWER: Activity did not occur on this shift TRANSFERS: SHOWER - SCORE: 0-UNK TRANSFERS: TUB: Activity did not occur on this shift TRANSFERS: TUB - SCORE: 0-UNK LOCOMOTION: WALK: Activity did not occur on this shift LOCOMOTION: WALK - SCORE: 0-UNK LOCOMOTION: WHEELCHAIR: Activity did not occur on this shift LOCOMOTION: WHEELCHAIR - SCORE: 0-UNK COMPREHENSION: COMPREHENSION: TYPE: Both COMPREHENSION - STEP 1: Does the patient require help from a person or device, or need extra time to understand complex and a bstract ideas (such as current events, finances, discharge planning, medical issues, relationships, e tc)? No. COMPREHENSION - STEP 2: Does the patient need extra time, require an assistive device (such as glasses for visual comprehensi on or a hearing aid for auditory comprehension) or does s/he have mild difficulty understanding compl ex and abstract information? Yes. COMPREHENSION - SCORE: 6-LIZ EXPRESSION EXPRESSION: TYPE: Both EXPRESSION - STEP 1: Does the patient require help from a person or device, or need extra time expressing complex and abst ract ideas (such as current events, finances, discharge planning, medical issues, relationships, etc) ? No. EXPRESSION - STEP 2: Does the patient need extra time, require an assistive device (such as augmentive communication syste m or a communication board), OR does s/he have mild difficulty expressing complex and abstract ideas (including mild dysarthria or mild word-find problems)? No. EXPRESSION - SCORE: 7-IND SOCIAL INTERACTION: SOCIAL INTERACTION - STEP 1: Does the patient require a helper to interact with others in social and therapeutic situations? No. SOCIAL INTERACTION - STEP 2: Does the patient need extra time in social situations, OR does s/he interact with staff, other patien ts, and family members ONLY in structured environments, OR does s/he require medication for social in teraction? Yes, patient needs extra time SOCIAL INTERACTION - SCORE: 6-LIZ PROBLEM SOLVING: PROBLEM SOLVING - STEP 1: Does the patient need help from a person or device, or need extra time to solve complex problems such as managing a checking account or confronting interpersonal problems? Yes. PROBLEM SOLVING - STEP 2: Does the patient solve basic routine problems half or more of the time? Yes. PROBLEM SOLVING - STEP 3: How often does the patient need help to solve basic routine problems? 10%-24% of the time PROBLEM SOLVING - SCORE: 4-MIN MEMORY: MEMORY - STEP 1: Does the patient need help from a person or device, or need extra time to remember frequently encount ered people, daily routines, and executing requests? No. MEMORY - STEP 2: Does the patient have slight difficulty recognizing frequently encountered people, daily routines, or executing requests without the need for repetition or using self-initiated or environmental cues to remember? Yes. MEMORY - SCORE: 6-LIZ SIGNATURE PANEL: The following modified sections: Eating - Score, Grooming - Score, Dressing - Upper Body - Score, Patrick ssing - Lower Body - Score, Toileting - Score, Bladder Management - Score, Bowel Management - Score, Transfers: Bed, Chair, Wheelchair - Score, Transfers: Toilet - Score, Transfers: Shower - Score, Sherman sfers: Tub - Score, Locomotion: Walk - Score, Locomotion: Wheelchair - Score, Comprehension - Score, Expression - Score, Social Interaction - Score, Problem Solving - Score, Memory - Score were [electro nically] signed by Josy Santoyo CNA on TueSep 27 2018 02:50:44 GMT-0500 (Central Daylight Time)
[2018-09-27] MEDS: TRAMADOL HCL 50 MG TAB PO PRN ×5 (04:21→21:04)
[2018-09-27 06:25] LABS: Absolute Lymphocytes (CBC) 1.1 K/uL (0.7-4.9); Basophils % 0.8 % (0-1.3); Hematocrit 35.9 % (36.0-45.0); Lymphocytes % 11.8 % (15.3-44.8); MPV 9.9 fL (7.6-11.3); RBC Red Blood Cell Count 3.55 M/uL (3.86-4.86)
[2018-09-27 06:44] LABS: Albumin 2.9 g/dL (3.4-5.0); BUN Blood Urea Nitrogen 7 mg/dL (7-18); Bicarbonate 30 mmol/L (21-32); Glucose Level 115 mg/dL (74-106); Magnesium 1.9 mg/dL (1.8-2.4); Potassium 3.8 mmol/L (3.5-5.1); Prealbumin 11.8 mg/dL (20-40); Sodium Level 134 mmol/L (136-145)
[2018-09-27] MEDS: HOME MED 1 EA UNK PO SCH ×2 (08:00)
[2018-09-27] MEDS: DOCUSATE NA 100 MG CAP PO SCH ×2 (08:00→20:00)
[2018-09-27] MEDS: MELOXICAM 7.5 MG TAB PO SCH (08:22)
[2018-09-27] MEDS: APIXABAN 2.5 MG TABLET PO SCH ×2 (08:23→20:01)
[2018-09-27] MEDS: GABAPENTIN 100 MG CAP PO SCH ×2 (08:23→20:01)
[2018-09-27] MEDS: MULTIVITAMIN TAB PO SCH (08:23)
[2018-09-27] MEDS: METHOCARBAMOL 750 MG TAB PO PRN ×2 (08:31→16:58)
--- NOTE | 2018-09-27 14:27 | FAST ---
SHIFT START DATE/TIME: 09/27/2018 07:00 (CDT) SHIFT END DATE/TIME: 09/27/2018 19:00 (CDT) NAME KWAN AVILA DATE OF : 1960 DATE OF ADMISSION: 09/26/2018 17:45 (CDT) PHONE: AGE: 58 N# [id number] GENDER: Female ENCOUNTER PHYSICIAN: Dr. Christiano Smith M.D. 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 EATING: EATING - STEP 1: Does the patient require the assistance of a person or device, or need extra time when eating? Yes. EATING - STEP 2: Does the patient require the assistance of a helper? No, patient only requires an assistive device, O R s/he takes more than reasonable time to eat, OR there is a safety concern, OR s/he requires modifie d food consistency EATING - SCORE: 6-LIZ GROOMING: Comb/brush hair Oral care Wash, rinse, and dry face Wash, rinse, and dry hands GROOMING - STEP 1: Does the patient require the assistance of a person or device, or need extra time when grooming? Yes. GROOMING - STEP 2: Does the patient require the assistance of a helper? No. The patient only requires an assistive devic e, OR takes more than reasonable time to groom, OR there is a concern for safety as the patient groom s GROOMING - SCORE: 6-LIZ BATHING: Activity did not occur on this shift BATHING - SCORE: 0-UNK DRESSING - UPPER BODY: Activity did not occur on this shift ARTICLES SCORE Total number of steps: 0 DRESSING - UPPER BODY - SCORE: 0-UNK DRESSING - LOWER BODY: Activity did not occur on this shift ARTICLES SCORE Total number of steps: 0 DRESSING - LOWER BODY - SCORE: 0-UNK TOILETING: TOILETING - STEP 1: Does the patient require the assistance of a person or device, or need extra time with toileting? Yes . TOILETING - STEP 2: Does the patient require the assistance of a helper? Yes. TOILETING - STEP 3: How much assistance does the patient require from the helper? Hands-on assistance from the helper TOILETING - STEP 4: Of the 3 tasks: 1) Adjusting clothing prior to use, 2) Cleansing of perineal area, 3) Adjusting clot denton after use; How many tasks does the patient perform WITHOUT assistance of the helper? Three tasks with steadying assistance from the helper TOILETING - SCORE: 4-MIN BLADDER MANAGEMENT: BLADDER MANAGEMENT - STEP 1: Does the patient control the bladder completely and intentionally without equipment or devices or med ications, and is always continent? No. BLADDER MANAGEMENT - STEP 2: Does the patient require the assistance of a helper? No, patient requires and independently uses an a ssistive device, such as a urinal, bedpan, bedside commode, catheter, absorbent pad, or collecting de vice BLADDER MANAGEMENT - SCORE: 6-LIZ BOWEL MANAGEMENT: Activity did not occur on this shift BOWEL MANAGEMENT - SCORE: 7-IND TRANSFERS: BED, CHAIR, WHEELCHAIR: TRANSFERS: BED, CHAIR, WHEELCHAIR - STEP 1: Does the patient require assistance of a person or device, or need extra time with bed, chair, or whe elchair transfers? Yes. TRANSFERS: BED, CHAIR, WHEELCHAIR - STEP 2: Does the patient require the assistance of a helper? Yes. TRANSFERS: BED, CHAIR, WHEELCHAIR - STEP 3: How much assistance does the patient require from the helper? Lifting of the legs TRANSFERS: BED, CHAIR, WHEELCHAIR - STEP 4: How many legs does the patient require the helper to lift? both legs TRANSFERS: BED, CHAIR, WHEELCHAIR - SCORE: 3-MOD TRANSFERS: TOILET: TRANSFERS: TOILET - STEP 1: Does the patient require the assistance of a person or device, or need extra time with toilet transfe rs? Yes. TRANSFERS: TOILET - STEP 2: Does the patient require the assistance of a helper? Yes. TRANSFERS: TOILET - STEP 3: How much assistance does the patient require from the helper? Patient performs half or more of the tr ansferring tasks TRANSFERS: TOILET - STEP 4: Does the patient need only incidental help such as contact guard or steadying during toilet transfer? Yes. TRANSFERS: TOILET - SCORE: 4-MIN TRANSFERS: SHOWER: Activity did not occur on this shift TRANSFERS: SHOWER - SCORE: 0-UNK TRANSFERS: TUB: Activity did not occur on this shift TRANSFERS: TUB - SCORE: 0-UNK LOCOMOTION: WALK: Activity did not occur on this shift LOCOMOTION: WALK - SCORE: 0-UNK LOCOMOTION: WHEELCHAIR: Activity did not occur on this shift LOCOMOTION: WHEELCHAIR - SCORE: 0-UNK COMPREHENSION: COMPREHENSION: TYPE: Both COMPREHENSION - STEP 1: Does the patient require help from a person or device, or need extra time to understand complex and a bstract ideas (such as current events, finances, discharge planning, medical issues, relationships, e tc)? No. COMPREHENSION - STEP 2: Does the patient need extra time, require an assistive device (such as glasses for visual comprehensi on or a hearing aid for auditory comprehension) or does s/he have mild difficulty understanding compl ex and abstract information? Yes. COMPREHENSION - SCORE: 6-LIZ EXPRESSION EXPRESSION: TYPE: Both EXPRESSION - STEP 1: Does the patient require help from a person or device, or need extra time expressing complex and abst ract ideas (such as current events, finances, discharge planning, medical issues, relationships, etc) ? No. EXPRESSION - STEP 2: Does the patient need extra time, require an assistive device (such as augmentive communication syste m or a communication board), OR does s/he have mild difficulty expressing complex and abstract ideas (including mild dysarthria or mild word-find problems)? Yes. EXPRESSION - SCORE: 6-LIZ SOCIAL INTERACTION: SOCIAL INTERACTION - STEP 1: Does the patient require a helper to interact with others in social and therapeutic situations? No. SOCIAL INTERACTION - STEP 2: Does the patient need extra time in social situations, OR does s/he interact with staff, other patien ts, and family members ONLY in structured environments, OR does s/he require medication for social in teraction? Yes, patient needs extra time SOCIAL INTERACTION - SCORE: 6-LIZ PROBLEM SOLVING: PROBLEM SOLVING - STEP 1: Does the patient need help from a person or device, or need extra time to solve complex problems such as managing a checking account or confronting interpersonal problems? No. PROBLEM SOLVING - STEP 2: Does the patient require extra time to make decisions or solve problems, OR does s/he have slight dif ficulty reading, initiating, or self-correcting in unfamiliar situations? Yes, patient needs extra ti me. PROBLEM SOLVING - SCORE: 6-LIZ MEMORY: MEMORY - STEP 1: Does the patient need help from a person or device, or need extra time to remember frequently encount ered people, daily routines, and executing requests? No. MEMORY - STEP 2: Does the patient have slight difficulty recognizing frequently encountered people, daily routines, or executing requests without the need for repetition or using self-initiated or environmental cues to remember? Yes. MEMORY - SCORE: 6-LIZ SIGNATURE PANEL: The following modified sections: Eating - Score, Grooming - Score, Bathing - Score, Dressing - Upper Body - Score, Dressing - Lower Body - Score, Toileting - Score, Bladder Management - Score, Bowel Man agement - Score, Transfers: Bed, Chair, Wheelchair - Score, Transfers: Toilet - Score, Transfers: Dyana wer - Score, Transfers: Tub - Score, Locomotion: Walk - Score, Locomotion: Wheelchair - Score, Compre hension - Score, Expression - Score, Social Interaction - Score, Problem Solving - Score, Memory - Sc ore were [electronically] signed by Austen Chandra on TueSep 27 2018 14:26:36 T-0500 (Central Daylight Time)
--- NOTE | 2018-09-27 16:13 | FAST ---
ENCOUNTER DATE AND TIME: 09/27/2018 08:00 (CDT) NAME KWAN AVILA DATE OF : 1960 DATE OF ADMISSION: 09/26/2018 17:45 (CDT) PHONE: AGE: 58 SSN# [id number] GENDER: Female ENCOUNTER PHYSICIAN: Dr. Christiano Smith M.D. 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 EATING: Activity did not occur on this shift EATING - SCORE: 0-UNK GROOMING: Activity did not occur on this shift GROOMING - SCORE: 0-UNK BATHING: Activity did not occur on this shift BATHING - SCORE: 0-UNK DRESSING - UPPER BODY: Activity did not occur on this shift Patient is not dressing in public clothing ARTICLES SCORE Total number of steps: 0 DRESSING - UPPER BODY - SCORE: 0-UNK DRESSING - LOWER BODY: Activity did not occur on this shift Patient is not dressing in public clothing ARTICLES SCORE Total number of steps: 0 DRESSING - LOWER BODY - SCORE: 0-UNK TOILETING: Activity did not occur on this shift TOILETING - SCORE: 0-UNK BLADDER MANAGEMENT: Activity did not occur on this shift BLADDER MANAGEMENT - SCORE: 7-IND BOWEL MANAGEMENT: Activity did not occur on this shift BOWEL MANAGEMENT - SCORE: 7-IND TRANSFERS: BED, CHAIR, WHEELCHAIR: TRANSFERS: BED, CHAIR, WHEELCHAIR - STEP 1: Does the patient require assistance of a person or device, or need extra time with bed, chair, or whe elchair transfers? Yes. TRANSFERS: BED, CHAIR, WHEELCHAIR - STEP 2: Does the patient require the assistance of a helper? Yes. TRANSFERS: BED, CHAIR, WHEELCHAIR - STEP 3: How much assistance does the patient require from the helper? Steadying/guiding assistance TRANSFERS: BED, CHAIR, WHEELCHAIR - SCORE: 4-MIN TRANSFERS: TOILET: Activity did not occur on this shift TRANSFERS: TOILET - SCORE: 0-UNK TRANSFERS: SHOWER: Activity did not occur on this shift TRANSFERS: SHOWER - SCORE: 0-UNK TRANSFERS: TUB: Activity did not occur on this shift TRANSFERS: TUB - SCORE: 0-UNK LOCOMOTION: WALK: LOCOMOTION: WALK - STEP 1: Does the patient need help from a person or device, or need extra time to walk 150 feet? Yes. LOCOMOTION: WALK - STEP 2: How much assistance does the patient require to walk a minimum of 150 feet? Only incidental help such as contact guarding or steadying LOCOMOTION: WALK - SCORE: 4-MIN LOCOMOTION: WHEELCHAIR: Activity did not occur on this shift LOCOMOTION: WHEELCHAIR - SCORE: 0-UNK LOCOMOTION: STAIRS: Patient goes up and down less than 4 to 6 stairs LOCOMOTION: STAIRS - SCORE: 1-DEP COMPREHENSION: COMPREHENSION - SCORE: 0-UNK EXPRESSION EXPRESSION - SCORE: 0-UNK SOCIAL INTERACTION: SOCIAL INTERACTION - SCORE: 0-UNK PROBLEM SOLVING: PROBLEM SOLVING - SCORE: 0-UNK MEMORY: MEMORY - SCORE: 0-UNK SIGNATURE PANEL: The following modified sections: Transfers: Bed, Chair, Wheelchair - Score, Transfers: Toilet - Score , Locomotion: Walk - Score, Locomotion: Wheelchair - Score, Locomotion: Stairs - Score were [gris teresa] signed by Bradly Ayoub PT on TueSep 27 2018 16:13:26 T-0500 (Central Daylight Time)
--- NOTE | 2018-09-27 19:51 | R.HP ---
FACILITY: [facility] ENCOUNTER DATE AND TIME: 09/27/2018 19:46 (CDT) MR#: [id number] NAME KWAN AVILA ADDRESS: [address] CITY: [place]IP [address] PHONE: DATE OF : 1960 AGE: 58 SSN# [id number] GENDER: Female DEXTERITY Right-handed MARITAL STATUS RACE White PRE-HOSPITAL LIVING SETTING 01 - Home (private home/apt. board/care, assisted living, senior living, transitional living) PRE-HOSPITAL LIVING WITH Family/Relatives ENCOUNTER PHYSICIAN: Dr. Christiano Smith M.D. REFERRING DOCTOR: Dr Herrera DATE OF ADMISSION: 09/26/2018 17:45 (CDT) REFERRING FACILITY [facility] in [facility] TYPE AND DETAILS: Type of home: single family house # of steps to enter the residence: 3 steps at back of residence # of levels in the residence: 1 ADMISSION DIAGNOSIS: Sponddylolisthesis at L4-5 with Bilateral facet joint degeneration, severe spinal stenosis ONSET DATE: 09/22/2018 PRIMARY DIAGNOSIS-RELATED SURGERIES: HISTORY OF PRESENT ILLNESS (HPI): Pt. is a 58 yo Right-handed white female. She has past medical history significant for Sponddylolisthesis at L4-5 with Bilateral facet joint de generation, severe spinal stenosis that failed conservative treatment. Pre-morbidly, Pt. was independent/mod-I in Locomotion and Self-Care; and she had good Endurance, Safe ty Awareness, Transfers Control, Balance, Social Cognition, and Communication. Currently, she has deficits of Self-Care, Transfers Control, Locomotion, Balance, and Safety Awarenes s. Pt. is now referred to [facility] for acute in-patient rehabilitation in order to maximize patient's functional independence in activities of daily living, strength, ROM, and mobi lity. Patient has realistic goal of being discharged at assistance level 6-Catarina to reside at Home with Fam oracio/Relatives. MEDICATION ALLERGIES: No Known Drug Allergies (NKDA) ENVIRONMENTAL ALLERGIES: None Known - Substance Allergies None Known - Other Allergies None Known PAST MEDICAL HISTORY: Arthritis Cancer - HCC GERD PAST SURGICAL HISTORY: COLONOSCOPY HYSTERECTOMY Cholecystectomy Left Knee Sx Right Wrist Sx FAMILY HISTORY: Family history is not contributory. SOCIAL HISTORY: - Home Living Family/Relatives REVIEW OF SYSTEMS: - Gen No Chills Fatigue No Fever - Eyes No Double Vision No itchiness - ENMT No Difficulty Swallowing - CVS No Chest Discomfort No Chest Pain Fatigue No Weight Gain - Resp No Cough No Shortness of Breath - GI Continent No Abdominal Pain No Constipation No Diarrhea - Continent No Kidney Pain No Painful Urination No Urinary Urgency - MSK No Joint Pain Muscle Cramps No Stiffness - Skin No Itching No Rash No Suspicious Lesions - Neuro Coordination Difficulty No Difficulty with Concentration No Memory Loss No Seizures Weakness - Psych No Anxiety No Depression No HIV Exposure No Persistent Infections No Seasonal Allergies - Endo No Cold/Heat Intolerance No Excessive Hunger No Excessive Thirst No Excessive Urination PHYSICAL EXAM - Gen Alert and awake Lying in bed No apparent distress Oriented to: person, time, and place - Skin No breakdown No abnormalities - Eyes No abnormalities - ENMT No abnormalities - Neck No abnormalities - CVS RRR - Chest No abnormalities - Resp Clear to auscultation - Abd Soft - GI nondistended Deferred - No abnormalities - Ext No significant edema - MSK 4/5 weakness in all extremities. - Neuro 4/5 strength in both lower extremities. - Psych No abnormalities VITAL SIGNS Temperature: 97.4 F SBP/DBP: 112/54 Pulse: 88 Resp: 18 NURSING: - Shower allowing shower - Bladder care per protocol - Skin care per protocol ACTIVITIES OOB only with supervision FUNCTIONAL STATUS: - Self-Care A. Eating Ind sup B. Grooming Ind sup C. Bathing Ind modA D. Dressing - Upper Ind modA E. Dressing - Lower Ind modA F. Toileting Ind modA - Sphincter Control G. Bladder control Ind Catarina H. Bowel control Ind Catarina - Transfers Control I. Bed/Chair/Wheelchair Ind modA J. Toilet Ind modA K. Tub/Shower Ind modA - Locomotion L. Walk/Wheelchair (W) Ind modA M. Stairs Ind ADNO - Communication N. Comprehension (B) Catarina sup O. Expression (B) Catarina sup - Social Cognition P. Social Interaction Catarina sup Q. Problem Solving Catarina sup R. Memory Ind Catarina - Endurance Good - Balance Good - Safety Awareness Good CURRENT FUNC. DEFICITS: Self-Care, Transfers Control, Communication, Social Cognition, and Locomotion MEDICATIONS: - Other See attached MAR (Medication Administration Record) [id number].pdf ASSESSMENT: Patient has realistic goal of being discharged at assistance level 6-Catarina to reside at Home with Fam oracio/Relatives. REHAB PLAN: - Physical Therapy Gait dysfunction - to improve, our physical therapists will perform initial evaluation of pt's status upon admission and devise an individualized program for Gait Training, and Wheel Chair mobility Inability to transfer - to improve, our physical therapists will perform initial evaluation of pt's s tatus upon admission and devise an individualized program for Bed mobility Need for home safety evaluation - to improve, our physical therapists will perform initial evaluation of pt's status upon admission and devise an individualized program for Home Evaluation Need in caregiver upon discharge - to improve, our physical therapists will perform initial evaluatio n of pt's status upon admission and devise an individualized program for Caregiver Training Edema - to improve, our physical therapists will perform initial evaluation of pt's status upon admi ssion and devise an individualized program for Elevation Training, and Lymphedema Therapy New precaution - to improve, our physical therapists will perform initial evaluation of pt's status u dick admission and devise an individualized program for Patient precaution education Poor balance - to improve, our physical therapists will perform initial evaluation of pt's status upo n admission and devise an individualized program for Balance Training Achieving independence - to improve, our physical therapists will perform initial evaluation of pt's status upon admission and devise an individualized program for Community Reintegration Activities - Occupational Therapy ADL deficits - to improve, our occupation therapists will perform initial evaluation of pt's status u dick admission and devise an individualized program for Bathing, Bed mobility, Community Reintegration , Cooking, Dressing, Eating, Fine Motor Skills, Grooming, Homemaking, Kitchen Mobility, Laundry, Kathi ent Education, Safety Awareness, Splinting - Positioning, Transfers(Toilet, Tub, Shower), and Wheel C hair Management Need for health care specialist - to improve, our occupation therapists will perform initial evaluation of pt's s tatus upon admission and devise an individualized program for Caregiver Training MEDICAL PLAN: - Diet Type Start Regular - Diet - Liquid Texture Start Regular - Tube Feed Start N/A - Bladder care per protocol - Skin care per protocol - Other See attached MAR (Medication Administration Record) See attached MAR (Medication Administration Record) [id number] - Diet - Solid Texture Regular - Shower shower DISCHARGE PLAN: - Estimated Length of Stay (days) 27. - Consensus on plan Discharge plan has been discussed with primary caregiver. Patient/Family is in agreement with the paul n. Primary caregiver is in agreement with the plan. - Patient/Family Goals Return home with assistance. - Planned Living Setting Upon Discharge Home, to live with Family/Relatives. - N/A Patient is a 58 year old female that lived in a one story home wtih her . Other than being in severe pain, she was very active. She tried multiple areas of improvement and was unsuccessful, the refore Dr. Herrera performed surgery that included a fusion and decompression. The patient tolerated th e surgery very well but to to the debilitation prior to the surgery and the surgery itself, it is nec essary for the patient to come to rehab in order to reagin her strength prior to discharging home. S he is now medically stable but in need of 24-hour nursing, doctor supervision and to participate in 3 hours of therapy a day/15 hours per week and receive care with an intensive interdisciplinary approach. SIGNATURE PANEL: (CDT)
--- NOTE | 2018-09-27 19:52 | PAPE ---
PATIENT: [facility] MR# [id number] REFERRING DOCTOR Dr Herrera EVALUATION DATE AND TIME 09/27/2018 19:51 (CDT) NAME KWAN AVILA DATE OF 1960 AGE 58 PHONE N# [id number] GENDER female EVALUATING PHYSICIAN Dr. Christiano Smith M.D. ADMISSION DIAGNOSIS: Sponddylolisthesis at L4-5 with Bilateral facet joint degeneration, severe spinal stenosis ONSET DATE 09/22/2018 POST-ADMISSION FUNCTIONAL/MEDICAL STATUS: - Walking Same score based on distance walked: 2(2069ft) STATUS CHANGE EVALUATION: No change in Functional or Medical Status is identified compared with Pre-Admission screening. PATIENT NEEDS CLOSE MEDICAL SUPERVISION BY A REHABILITATION PHYSICIAN FOR: Coordination of Treatment Team Post-Op Complications Wound Care PATIENT REQUIRES 24X7 REHAB NURSING FOR MEDICAL AND FUNCTIONAL MGT. OF THE FOLLOWING DEFICITS: ADL's Ambulation Bowel and Bladder Management Cognition Communication Disease Management Medication Management Patient/Family Education Providing Safe Environment Skin Integrity Transfers PATIENT REQUIRES INTENSIVE, COORDINATED INTERDISCIPLINARY APPROACH TO REHAB: Arranging Home Equipment/Services Discharge Planning Family Intervention/Training Bill Of Materials Clerk/Case Management LIST OF IDENTIFIED AND POTENTIAL PROBLEMS: Alteration in leisure activities Infection, Actual or Potential Mobility Impaired Pain, Alteration in Comfort Self Care Deficit Skin Integrity, Actual or Potential Urinary Tract Infection (UTI), Actual or Potential RISK FOR COMPLICATIONS - GERD Pain. Alteration in sleep. Aspiration. GERD. INTERVENTIONS - DVT/PE Activity management. Labs. Medications. - GERD Altered diet. Medications. PATIENT COULD BE AT RISK FOR COMPLICATIONS FROM ADVERSE MEDICAL CONDITIONS DUE TO HIS/HER COMORBIDITI ES AND THE RIGORS OF THE INTENSIVE REHABILLITATION PROGRAM. METHODS OR INTERVENTIONS TO AVOID COMPLIC ATIONS INCLUDE: - Bleeding Assess lab values and manage abnormalities. Nursing to teach precautions for anti-coagulation therapy . Wound to be assessed every shift. - Infection Clinical staff to assess and manage the signs and symptoms of infection including fever, redness, war mth, etc. - Urinary Tract Infection - Falls Patient will be evaluated for Fall Precautions and will be placed on Fall Precautions as indicated pe r protocol. - Skin Breakdown Nursing will assess skin daily using assessment tool and will place on Skin Breakdown Precautions as indicated per protocol. - Pain Clinical staff may employ non-medication methods such as massage, distraction, decrease stimulus, etc . as needed. Clinical staff will assess patient's pain level every shift per protocol to assess and e nsure pain management effectiveness. Medications will be given and the pain level re-assessed. PRELIMINARY PLAN OF CARE: - Physical Therapy Patient needs Physical Therapy for a daily minimum of 1.5 hours at least 5 out of 7 days, to improve: Mobility, Strengthening, Transfers, Stretching, ROM, Endurance, Ability to manage stairs, Gait, and Balance. - Rehabilitation Nursing Patient requires 24x7 Rehabilitation Nursing for: Pain Issues, Identifying and preventing risk factor s, Monitoring and reporting current medical conditions, Assisting with ambulation and transfer, Catarina ting with all ADL-s, Teaching patients about disease process and medications, Family teaching, Provid ing safe environment, Bowel and Bladder Issues, Skin Integrity, and Medication Management. Patient needs Bill Of Materials Clerk and/or Case Management for: Discharge Planning, Arranging Home Equipmen t or Services, and Family Interventions. - Dietary and Nutrition Services Patient needs Dietary and Nutrition Services for: Adequate Nutrition, Nutritional Supplements, and Nu tritional Education. - Occupational Therapy Patient needs Occupational Therapy for a daily minimum of 1.5 hours at least 5 out of 7 days, to impr ove Activities of Daily Living, including: Eating, Grooming, Bathing, Dressing, Toileting, Toilet Tra nsfers, Community Reintegration, Higher functional activities, Adaptive Equipment, Splinting, Househo ld Tasks, and Other activities as determined. POTENTIAL FUNCTIONAL GOALS FOR PATIENT TO ACHIEVE BY DISCHARGE: - Safety Precaution Patient will remain free from falls or injury at time of discharge. - Bed Mobility Patient will perform bed mobility at 4-Rain level of assistance. - Transfers Patient will complete transfers from bed to chair at 4-Rain level of assistance. - Mobility Patient will ambulate 150 ft with 4-Rain level of assistance with RW. PATIENT REHAB POTENTIAL Ai AVILA is able and expected to receive 3 hours of individualized therapy daily on at least 5 of every 7 days DMarco AVILA's prognosis for significant practical improvement within a reasonable period of time appears G ood Expected level of measurable improvement will be of a practical value to DMarco AVILA's functional capacity or adaptations to impairments Has a viable Discharge Plan Medically appropriate; condition is sufficiently stable to participate in intensive rehab program DISCHARGE PLAN: - Estimated Length of Stay (days) 27. - Consensus on plan Discharge plan has been discussed with primary caregiver. Patient/Family is in agreement with the paul n. Primary caregiver is in agreement with the plan. - Patient/Family Goals Return home with assistance. - Planned Living Setting Upon Discharge Home, to live with Family/Relatives. - N/A Patient is a 58 year old female that lived in a one story home wtih her . Other than being in severe pain, she was very active. She tried multiple areas of improvement and was unsuccessful, the refore Dr. Herrera performed surgery that included a fusion and decompression. The patient tolerated th e surgery very well but to to the debilitation prior to the surgery and the surgery itself, it is nec essary for the patient to come to rehab in order to reagin her strength prior to discharging home. S he is now medically stable but in need of 24-hour nursing, doctor supervision and to participate in 3 hours of therapy a day/15 hours per week and receive care with an intensive interdisciplinary approach. CONCLUSION ON REHABILITATION NECESSITY: I have evaluated patient's pre-admission functional status and, comparing it to the patient's post-ad mission functional status now, I conclude that the pre-admission assessment was accurate. Patient's c ondition on admission supports the medical necessity of admission to IR[facility]. It is safe to proceed with patient's therapy program. SIGNATURE PANEL: (CDT)
[2018-09-27] MEDS: PROMOD 30 ML DOSE PO SCH (20:02)
[2018-09-28] MEDS: HYDROCODONE/APAP 10/325 TAB PO PRN ×5 (00:28→20:05)
[2018-09-28] MEDS: TRAMADOL HCL 50 MG TAB PO PRN ×5 (04:30→22:02)
[2018-09-28] MEDS: METHOCARBAMOL 750 MG TAB PO PRN ×3 (04:32→20:06)
[2018-09-28 06:32] LABS: Absolute Lymphocytes (CBC) 1.1 K/uL (0.7-4.9); Basophils % 0.8 % (0-1.3); Hematocrit 31.9 % (36.0-45.0); Lymphocytes % 18.6 % (15.3-44.8); MPV 9.8 fL (7.6-11.3); RBC Red Blood Cell Count 3.18 M/uL (3.86-4.86)
[2018-09-28] MEDS: MELOXICAM 7.5 MG TAB PO SCH (06:47)
[2018-09-28 06:54] LABS: Albumin 2.6 g/dL (3.4-5.0); BUN Blood Urea Nitrogen 9 mg/dL (7-18); Bicarbonate 29 mmol/L (21-32); Glucose Level 112 mg/dL (74-106); Magnesium 1.9 mg/dL (1.8-2.4); Potassium 3.8 mmol/L (3.5-5.1); Prealbumin 12.8 mg/dL (20-40); Sodium Level 137 mmol/L (136-145)
[2018-09-28] MEDS: HOME MED 1 EA UNK PO SCH ×2 (08:00)
[2018-09-28] MEDS: DOCUSATE NA 100 MG CAP PO SCH ×2 (08:00→20:00)
[2018-09-28] MEDS: MULTIVITAMIN TAB PO SCH (08:25)
[2018-09-28] MEDS: GABAPENTIN 100 MG CAP PO SCH ×2 (08:25→20:05)
[2018-09-28] MEDS: APIXABAN 2.5 MG TABLET PO SCH ×2 (08:25→20:05)
[2018-09-28] MEDS: PROMOD 30 ML DOSE PO SCH ×2 (08:28→20:06)
[2018-09-28 09:24] LABS: Blood Morphology Comment NOT SEEN (NOT SEEN); Platelet Estimate ADEQ; Urine White Blood Cell Casts OK
--- NOTE | 2018-09-28 13:19 | FAST ---
SHIFT START DATE/TIME: 09/28/2018 07:00 (CDT) SHIFT END DATE/TIME: 09/28/2018 19:00 (CDT) NAME KWAN AVILA DATE OF : 1960 DATE OF ADMISSION: 09/26/2018 17:45 (CDT) PHONE: AGE: 58 N# [id number] GENDER: Female ENCOUNTER PHYSICIAN: Dr. Christiano Smith M.D. 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 EATING: EATING - STEP 1: Does the patient require the assistance of a person or device, or need extra time when eating? Yes. EATING - STEP 2: Does the patient require the assistance of a helper? Yes. EATING - STEP 3: Does the patient perform half or more of the eating tasks? Yes. EATING - STEP 4: Does the patient need only supervision, cuing, coaxing OR help to apply an orthosis OR help to cut fo od, open containers, pour liquids, or butter bread? Yes. EATING - SCORE: 5-SUP GROOMING: Comb/brush hair Oral care Wash, rinse, and dry face Wash, rinse, and dry hands GROOMING - STEP 1: Does the patient require the assistance of a person or device, or need extra time when grooming? Yes. GROOMING - STEP 2: Does the patient require the assistance of a helper? Yes. GROOMING - STEP 3: How much assistance does the patient require from the helper? Cuing, coaxing, instructions, or encour agement for completion of grooming GROOMING - SCORE: 5-SUP BATHING: Activity did not occur on this shift BATHING - SCORE: 0-UNK DRESSING - UPPER BODY: Activity did not occur on this shift ARTICLES SCORE Total number of steps: 0 DRESSING - UPPER BODY - SCORE: 0-UNK DRESSING - LOWER BODY: Activity did not occur on this shift ARTICLES SCORE Total number of steps: 0 DRESSING - LOWER BODY - SCORE: 0-UNK TOILETING: TOILETING - STEP 1: Does the patient require the assistance of a person or device, or need extra time with toileting? Yes . TOILETING - STEP 2: Does the patient require the assistance of a helper? Yes. TOILETING - STEP 3: How much assistance does the patient require from the helper? Only supervision TOILETING - SCORE: 5-SUP BLADDER MANAGEMENT: BLADDER MANAGEMENT - STEP 1: Does the patient control the bladder completely and intentionally without equipment or devices or med ications, and is always continent? No. BLADDER MANAGEMENT - STEP 2: Does the patient require the assistance of a helper? No, patient requires and independently uses an a ssistive device, such as a urinal, bedpan, bedside commode, catheter, absorbent pad, or collecting de vice BLADDER MANAGEMENT - SCORE: 6-LIZ BOWEL MANAGEMENT: Activity did not occur on this shift BOWEL MANAGEMENT - SCORE: 7-IND TRANSFERS: BED, CHAIR, WHEELCHAIR: TRANSFERS: BED, CHAIR, WHEELCHAIR - STEP 1: Does the patient require assistance of a person or device, or need extra time with bed, chair, or whe elchair transfers? Yes. TRANSFERS: BED, CHAIR, WHEELCHAIR - STEP 2: Does the patient require the assistance of a helper? Yes. TRANSFERS: BED, CHAIR, WHEELCHAIR - STEP 3: How much assistance does the patient require from the helper? Steadying/guiding assistance TRANSFERS: BED, CHAIR, WHEELCHAIR - SCORE: 4-MIN TRANSFERS: TOILET: TRANSFERS: TOILET - STEP 1: Does the patient require the assistance of a person or device, or need extra time with toilet transfe rs? Yes. TRANSFERS: TOILET - STEP 2: Does the patient require the assistance of a helper? Yes. TRANSFERS: TOILET - STEP 3: How much assistance does the patient require from the helper? Patient performs half or more of the tr ansferring tasks TRANSFERS: TOILET - STEP 4: Does the patient need only incidental help such as contact guard or steadying during toilet transfer? Yes. TRANSFERS: TOILET - SCORE: 4-MIN TRANSFERS: SHOWER: Activity did not occur on this shift TRANSFERS: SHOWER - SCORE: 0-UNK TRANSFERS: TUB: Activity did not occur on this shift TRANSFERS: TUB - SCORE: 0-UNK LOCOMOTION: WALK: Activity did not occur on this shift LOCOMOTION: WALK - SCORE: 0-UNK LOCOMOTION: WHEELCHAIR: Activity did not occur on this shift LOCOMOTION: WHEELCHAIR - SCORE: 0-UNK COMPREHENSION: COMPREHENSION: TYPE: Both COMPREHENSION - STEP 1: Does the patient require help from a person or device, or need extra time to understand complex and a bstract ideas (such as current events, finances, discharge planning, medical issues, relationships, e tc)? No. COMPREHENSION - STEP 2: Does the patient need extra time, require an assistive device (such as glasses for visual comprehensi on or a hearing aid for auditory comprehension) or does s/he have mild difficulty understanding compl ex and abstract information? No. COMPREHENSION - SCORE: 7-IND EXPRESSION EXPRESSION: TYPE: Both EXPRESSION - STEP 1: Does the patient require help from a person or device, or need extra time expressing complex and abst ract ideas (such as current events, finances, discharge planning, medical issues, relationships, etc) ? No. EXPRESSION - STEP 2: Does the patient need extra time, require an assistive device (such as augmentive communication syste m or a communication board), OR does s/he have mild difficulty expressing complex and abstract ideas (including mild dysarthria or mild word-find problems)? Yes. EXPRESSION - SCORE: 6-LIZ SOCIAL INTERACTION: SOCIAL INTERACTION - STEP 1: Does the patient require a helper to interact with others in social and therapeutic situations? Yes. SOCIAL INTERACTION - STEP 2: Does the patient interact appropriately half or more of the time? Yes. SOCIAL INTERACTION - STEP 3: How often does the patient need help to interact appropriately? Less than 10% of the time SOCIAL INTERACTION - SCORE: 5-SUP PROBLEM SOLVING: PROBLEM SOLVING - STEP 1: Does the patient need help from a person or device, or need extra time to solve complex problems such as managing a checking account or confronting interpersonal problems? No. PROBLEM SOLVING - STEP 2: Does the patient require extra time to make decisions or solve problems, OR does s/he have slight dif ficulty reading, initiating, or self-correcting in unfamiliar situations? Yes, patient needs extra ti me. PROBLEM SOLVING - SCORE: 6-LIZ MEMORY: MEMORY - STEP 1: Does the patient need help from a person or device, or need extra time to remember frequently encount ered people, daily routines, and executing requests? No. MEMORY - STEP 2: Does the patient have slight difficulty recognizing frequently encountered people, daily routines, or executing requests without the need for repetition or using self-initiated or environmental cues to remember? Yes. MEMORY - SCORE: 6-LIZ SIGNATURE PANEL: The following modified sections: Eating - Score, Grooming - Score, Bathing - Score, Dressing - Upper Body - Score, Dressing - Lower Body - Score, Toileting - Score, Bladder Management - Score, Bowel Man agement - Score, Transfers: Bed, Chair, Wheelchair - Score, Transfers: Toilet - Score, Transfers: Dyana wer - Score, Transfers: Tub - Score, Locomotion: Walk - Score, Locomotion: Wheelchair - Score, Compre hension - Score, Expression - Score, Social Interaction - Score, Problem Solving - Score, Memory - Sc ore were [electronically] signed by Austen Chandra on TueSep 28 2018 13:19:31 GMT-0500 (Central Daylight Time)
--- NOTE | 2018-09-28 18:00 | FAST ---
ENCOUNTER DATE AND TIME: 09/27/2018 08:00 (CDT) NAME KWAN AVILA DATE OF : 1960 DATE OF ADMISSION: 09/26/2018 17:45 (CDT) PHONE: AGE: 58 SSN# [id number] GENDER: Female ENCOUNTER PHYSICIAN: Dr. Christiano Smith M.D. 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 EATING: EATING - STEP 1: Does the patient require the assistance of a person or device, or need extra time when eating? No. EATING - SCORE: 7-IND GROOMING: Comb/brush hair Oral care Wash, rinse, and dry face Wash, rinse, and dry hands GROOMING - STEP 1: Does the patient require the assistance of a person or device, or need extra time when grooming? Yes. GROOMING - STEP 2: Does the patient require the assistance of a helper? Yes. GROOMING - STEP 3: How much assistance does the patient require from the helper? Incidental touching assistance from the helper while grooming GROOMING - SCORE: 4-MIN BATHING: Abdomen Buttocks Chest Left arm Left lower leg and foot Left upper leg Perineal area Right arm Right lower leg and foot Right upper leg BATHING - STEP 1: Does the patient require the assistance of a person or device, or need extra time when bathing? Yes. BATHING - STEP 2: Does the patient require the assistance of a helper? Yes. BATHING - STEP 3: How much assistance does the patient require from the helper? Only incidental help such as placement of a wash cloth in his/her hand a few times as s/he bathes OR help to bathe just one or two areas of the body BATHING - SCORE: 4-MIN DRESSING - UPPER BODY: T-shirt/pullover shirt (four steps) ARTICLES SCORE Total number of steps: 4 DRESSING - UPPER BODY - STEP 1: Does the patient require help from a person or device, or need extra time when dressing above the ayo st? Yes. DRESSING - UPPER BODY - STEP 2: Does the patient require the assistance of a helper? Yes. DRESSING - UPPER BODY - STEP 3: Does the helper touch the patient while dressing? No. DRESSING - UPPER BODY - SCORE: 5-SUP DRESSING - LOWER BODY: Slip-on shoe - Left foot (one step) Slip-on shoe - Right foot (one step) Underwear (three steps) ARTICLES SCORE Total number of steps: 5 DRESSING - LOWER BODY - STEP 1: Does the patient require help from a person or device, or need extra time when dressing below the ayo st? Yes. DRESSING - LOWER BODY - STEP 2: Does the patient require the assistance of a helper? Yes. DRESSING - LOWER BODY - STEP 3: Does the helper touch the patient while dressing? Yes. DRESSING - LOWER BODY - STEP 4: How many of the total steps does the patient complete on his/her own? 3 DRESSING - LOWER BODY - SCORE: 3-MOD TOILETING: Activity did not occur on this shift TOILETING - SCORE: 0-UNK BLADDER MANAGEMENT: Activity did not occur on this shift BLADDER MANAGEMENT - SCORE: 7-IND BOWEL MANAGEMENT: Activity did not occur on this shift BOWEL MANAGEMENT - SCORE: 7-IND TRANSFERS: BED, CHAIR, WHEELCHAIR: TRANSFERS: BED, CHAIR, WHEELCHAIR - STEP 1: Does the patient require assistance of a person or device, or need extra time with bed, chair, or whe elchair transfers? Yes. TRANSFERS: BED, CHAIR, WHEELCHAIR - STEP 2: Does the patient require the assistance of a helper? Yes. TRANSFERS: BED, CHAIR, WHEELCHAIR - STEP 3: How much assistance does the patient require from the helper? Steadying/guiding assistance TRANSFERS: BED, CHAIR, WHEELCHAIR - SCORE: 4-MIN TRANSFERS: TOILET: Activity did not occur on this shift TRANSFERS: TOILET - SCORE: 0-UNK TRANSFERS: SHOWER: Activity did not occur on this shift TRANSFERS: SHOWER - SCORE: 0-UNK TRANSFERS: TUB: TRANSFERS: TUB - STEP 1: Does the patient require the assistance of a person or device, or need extra time with tub transfers? Yes. TRANSFERS: TUB - STEP 2: Does the patient require the assistance of a helper? Yes. TRANSFERS: TUB - STEP 3: How much assistance does the patient require from the helper? Incidental help such as contact guardin g or steadying, OR help to lift one leg into the tub TRANSFERS: TUB - SCORE: 4-MIN LOCOMOTION: WALK: Activity did not occur on this shift LOCOMOTION: WALK - SCORE: 0-UNK LOCOMOTION: WHEELCHAIR: Activity did not occur on this shift LOCOMOTION: WHEELCHAIR - SCORE: 0-UNK LOCOMOTION: STAIRS: Activity did not occur on this shift LOCOMOTION: STAIRS - SCORE: 0-UNK COMPREHENSION: COMPREHENSION: TYPE: Both COMPREHENSION - STEP 1: Does the patient require help from a person or device, or need extra time to understand complex and a bstract ideas (such as current events, finances, discharge planning, medical issues, relationships, e tc)? No. COMPREHENSION - STEP 2: Does the patient need extra time, require an assistive device (such as glasses for visual comprehensi on or a hearing aid for auditory comprehension) or does s/he have mild difficulty understanding compl ex and abstract information? No. COMPREHENSION - SCORE: 7-IND EXPRESSION EXPRESSION: TYPE: Both EXPRESSION - STEP 1: Does the patient require help from a person or device, or need extra time expressing complex and abst ract ideas (such as current events, finances, discharge planning, medical issues, relationships, etc) ? No. EXPRESSION - STEP 2: Does the patient need extra time, require an assistive device (such as augmentive communication syste m or a communication board), OR does s/he have mild difficulty expressing complex and abstract ideas (including mild dysarthria or mild word-find problems)? No. EXPRESSION - SCORE: 7-IND SOCIAL INTERACTION: SOCIAL INTERACTION - STEP 1: Does the patient require a helper to interact with others in social and therapeutic situations? No. SOCIAL INTERACTION - STEP 2: Does the patient need extra time in social situations, OR does s/he interact with staff, other patien ts, and family members ONLY in structured environments, OR does s/he require medication for social in teraction? No. SOCIAL INTERACTION - SCORE: 7-IND PROBLEM SOLVING: PROBLEM SOLVING - STEP 1: Does the patient need help from a person or device, or need extra time to solve complex problems such as managing a checking account or confronting interpersonal problems? No. PROBLEM SOLVING - STEP 2: Does the patient require extra time to make decisions or solve problems, OR does s/he have slight dif ficulty reading, initiating, or self-correcting in unfamiliar situations? No. PROBLEM SOLVING - SCORE: 7-IND MEMORY: MEMORY - STEP 1: Does the patient need help from a person or device, or need extra time to remember frequently encount ered people, daily routines, and executing requests? No. MEMORY - STEP 2: Does the patient have slight difficulty recognizing frequently encountered people, daily routines, or executing requests without the need for repetition or using self-initiated or environmental cues to remember? No. MEMORY - SCORE: 7-IND SIGNATURE PANEL: The following modified sections: Eating - Score, Grooming - Score, Bathing - Score, Dressing - Upper Body - Score, Dressing - Lower Body - Score, Toileting - Score, Transfers: Bed, Chair, Wheelchair - S core, Transfers: Toilet - Score, Transfers: Shower - Score, Transfers: Tub - Score, Comprehension - S core, Expression - Score, Social Interaction - Score, Problem Solving - Score, Memory - Score were [e lectronically] signed by Lennie Ceron OT on TueSep 28 2018 17:59:41 GMT-0500 ([facility])
[2018-09-28] MEDS: MELATONIN 3 MG TABLET PO PRN (22:04)
[2018-09-29] MEDS: HYDROCODONE/APAP 10/325 TAB PO PRN ×5 (01:24→19:11)
[2018-09-29] MEDS: METHOCARBAMOL 750 MG TAB PO PRN ×2 (04:36→19:11)
[2018-09-29] MEDS: TRAMADOL HCL 50 MG TAB PO PRN ×5 (04:37→21:27)
[2018-09-29] MEDS: DOCUSATE NA 100 MG CAP PO SCH ×3 (08:00→19:10)
[2018-09-29] MEDS: HOME MED 1 EA UNK PO SCH ×2 (08:00)
[2018-09-29] MEDS: MULTIVITAMIN TAB PO SCH (08:32)
[2018-09-29] MEDS: MELOXICAM 7.5 MG TAB PO SCH (08:32)
[2018-09-29] MEDS: APIXABAN 2.5 MG TABLET PO SCH ×2 (08:33→19:10)
[2018-09-29] MEDS: GABAPENTIN 100 MG CAP PO SCH (08:33)
[2018-09-29] MEDS: PROMOD 30 ML DOSE PO SCH ×2 (09:00→19:12)
--- NOTE | 2018-09-29 09:37 | P.RH.PN ---
Estimated Length of Stay: 12 Expected Discharge Date: 10/07/18 Discharge Disposition Plan: Home Family Support: Yes [facility] Goal: Mobility, Transfers, Self Care Vital Signs: Last Vital Signs Temp 97.1 F 09/29/18 06:45 Pulse 71 09/29/18 06:45 Resp 16 09/29/18 06:45 BP 111/56 L 09/29/18 06:45 Pulse Ox 96 09/29/18 06:45 Laboratory: Laboratory Last Values WBC 5.8 K/uL (4.3-10.9) D 09/28/18 06:13 RBC 3.18 M/uL (3.86-4.86) L 09/28/18 06:13 Hgb 11.4 g/dL (12.0-15.0) L 09/28/18 06:13 Hct 31.9 % (36.0-45.0) L 09/28/18 06:13 MCV 100.3 fL (80-100) H 09/28/18 06:13 MCH 36.0 pg (27.0-35.0) H 09/28/18 06:13 MCHC 35.9 g/dL (32.0-36.0) 09/28/18 06:13 RDW 13.3 % (12.1-15.2) 09/28/18 06:13 Plt Count 225 K/uL (152-406) 09/28/18 06:13 MPV 9.8 fL (7.6-11.3) 09/28/18 06:13 Neutrophils % 58.0 % (41.7-73.7) 09/28/18 06:13 Lymphocytes % 18.6 % (15.3-44.8) 09/28/18 06:13 Monocytes % 16.2 % (3.3-12.3) H 09/28/18 06:13 Eosinophils % 6.4 % (0-4.4) H 09/28/18 06:13 Basophils % 0.8 % (0-1.3) 09/28/18 06:13 Absolute Neutrophils 3.4 K/uL (1.8-8.0) 09/28/18 06:13 Absolute Lymphocytes 1.1 K/uL (0.7-4.9) 09/28/18 06:13 Absolute Monocytes 0.9 K/uL (0.1-1.3) 09/28/18 06:13 Absolute Eosinophils 0.4 K/uL (0-0.5) 09/28/18 06:13 Absolute Basophils 0.0 K/uL (0-0.5) 09/28/18 06:13 Morphology Comment Not seen (NOT SEEN) 09/28/18 06:13 Sodium 137 mmol/L (136-145) 09/28/18 06:13 Potassium 3.8 mmol/L (3.5-5.1) 09/28/18 06:13 Chloride 102 mmol/L (98-107) 09/28/18 06:13 Carbon Dioxide 29 mmol/L (21-32) 09/28/18 06:13 BUN 9 mg/dL (7-18) 09/28/18 06:13 Creatinine 0.59 mg/dL (0.55-1.3) 09/28/18 06:13 Estimated GFR > 90 mL/min (=/>90) 09/28/18 06:13 Glucose 112 mg/dL (74-106) H 09/28/18 06:13 Calcium 8.7 mg/dL (8.5-10.1) 09/28/18 06:13 Magnesium 1.9 mg/dL (1.8-2.4) 09/28/18 06:13 Albumin 2.6 g/dL (3.4-5.0) L 09/28/18 06:13 Prealbumin 12.8 mg/dL (20-40) L 09/28/18 06:13 Urine Color Yellow 09/26/18 18:00 Urine Appearance Clear 09/26/18 18:00 Urine pH 7.0 (5.0-7.0) 09/26/18 18:00 Ur Specific [place] 1.010 (1.005-1.030) 09/26/18 18:00 Urine Ketones Negative (NEG) 09/26/18 18:00 Urine Blood Negative (NEG) 09/26/18 18:00 Urine Nitrite Negative (NEG) 09/26/18 18:00 Urine Bilirubin Negative (NEG) 09/26/18 18:00 Urine Urobilinogen 0.2 mg/dL (0.2-1.0) 09/26/18 18:00 Ur Leukocyte Esterase Trace (NEG) H 09/26/18 18:00 Urine RBC <5 /HPF (NONE SEEN) 09/26/18 18:00 Urine WBC <5 /HPF (<5) 09/26/18 18:00 Ur Squamous Epith Cells 5-10 /HPF (NONE SEEN) H 09/26/18 18:00 Ur Urothelial Cells Cancelled 09/25/18 18:00 Calcium Oxalate Crystal Cancelled 09/25/18 18:00 Uric Acid Crystals Cancelled 09/25/18 18:00 Triple Phos Crystals Cancelled 09/25/18 18:00 Other Crystals Cancelled 09/25/18 18:00 Amorphous Sediment Cancelled 09/25/18 18:00 Glitter Cells Cancelled 09/25/18 18:00 Urine Bacteria <20 /HPF (<20) 09/26/18 18:00 Hyaline Casts Cancelled 09/25/18 18:00 Fine Granular Casts Cancelled 09/25/18 18:00 Coarse Granular Casts Cancelled 09/25/18 18:00 Waxy Casts Cancelled 09/25/18 18:00 RBC Casts Cancelled 09/25/18 18:00 WBC Casts Cancelled 09/25/18 18:00 Urine Mucus Cancelled 09/25/18 18:00 Urine Other Cancelled 09/25/18 18:00 Urine Trichomonas Cancelled 09/25/18 18:00 Urine Yeast Cancelled 09/25/18 18:00 Ur Yeast w Hyphae Cancelled 09/25/18 18:00 Urine Yeast (Budding) Cancelled 09/25/18 18:00 Urine Sperm Cancelled 09/25/18 18:00 Urine Culture Reflexed Not needed 09/26/18 18:00 Urine Total Volume Cancelled 09/25/18 18:00 Urine Glucose Negative (NEG) 09/26/18 18:00 Urine Total Protein Negative (NEG) 09/26/18 18:00 Weight: 138 lb 9.6 oz Wound Present: Yes Closed Surgical Incision Present: Yes Physician Update: Labs reviewed and are stable. She is at standby assistance with ADLs. She walks 250' with contact guard assistance. Up and down stairs with contact guard assistance. Medical Issues: DVT Prophylaxis - Eliquis 2.5mg BID Pain Issues: Tramadol 50mg Q4H PO PRN. Jeannette 10/325mg Q4H PO PRN Comment: Right upper arm red and swollen s/p post pneumonia vaccine shoot from [facility] Functional Improvement Occupational Therapy: Pt can benifit with further therapy to address pt's overall weakness in pt's Upper extremities, cont to educate and train pt on enegy conservation techniques for safety and for spinal precautions by demo A/E for LB dressing. Cont to increase pt's UB strength and endurance for adl tasks and for functional tasks. Cont to increase pt' static standing balance for clothing and for functional transfers. Summary: Patient's care plan and tank terminal gauger goals have been reviewed and revised as necessary. Please see the Rehabilitation Signature page for all necessary signatures.
--- NOTE | 2018-09-29 13:40 | FAST ---
ENCOUNTER DATE AND TIME: 09/29/2018 08:00 (CDT) NAME KWAN AVILA DATE OF : 1960 DATE OF ADMISSION: 09/26/2018 17:45 (CDT) PHONE: AGE: 58 SSN# [id number] GENDER: Female ENCOUNTER PHYSICIAN: Dr. Christiano Smith M.D. 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 EATING: Activity did not occur on this shift EATING - SCORE: 0-UNK GROOMING: Oral care Wash, rinse, and dry face Wash, rinse, and dry hands GROOMING - STEP 1: Does the patient require the assistance of a person or device, or need extra time when grooming? No. GROOMING - SCORE: 7-IND BATHING: Abdomen Chest Left arm Left lower leg and foot Left upper leg Perineal area Right arm Right lower leg and foot Right upper leg BATHING - STEP 1: Does the patient require the assistance of a person or device, or need extra time when bathing? Yes. BATHING - STEP 2: Does the patient require the assistance of a helper? No. The patient only requires an assistive devic e such as a bath claire, OR the patient takes more than reasonable time to bathe, OR there is a concern for safety such as regulating water temperature as the patient bathes. BATHING - SCORE: 6-LIZ DRESSING - UPPER BODY: T-shirt/pullover shirt (four steps) ARTICLES SCORE Total number of steps: 4 DRESSING - UPPER BODY - STEP 1: Does the patient require help from a person or device, or need extra time when dressing above the ayo st? Yes. DRESSING - UPPER BODY - STEP 2: Does the patient require the assistance of a helper? No. Patient only requires an assistive device, s uch as a button hook, velcro, or scraper meat. OR s/he takes more than reasonable time as s/he dresses the upper body. OR there is a concern for safety when s/he dresses the upper body DRESSING - UPPER BODY - SCORE: 6-LIZ DRESSING - LOWER BODY: Underwear (three steps) ARTICLES SCORE Total number of steps: 3 DRESSING - LOWER BODY - STEP 1: Does the patient require help from a person or device, or need extra time when dressing below the ayo st? Yes. DRESSING - LOWER BODY - STEP 2: Does the patient require the assistance of a helper? No. Patient requires an assistive device such as a scraper meat. OR s/he takes more than reasonable time as s/he dresses the lower body, OR there is a con cern for safety when s/he dresses the lower body DRESSING - LOWER BODY - SCORE: 6-LIZ TOILETING: TOILETING - STEP 1: Does the patient require the assistance of a person or device, or need extra time with toileting? Yes . TOILETING - STEP 2: Does the patient require the assistance of a helper? No. TOILETING - SCORE: 6-LIZ BLADDER MANAGEMENT: Activity did not occur on this shift BLADDER MANAGEMENT - SCORE: 7-IND BOWEL MANAGEMENT: Activity did not occur on this shift BOWEL MANAGEMENT - SCORE: 7-IND TRANSFERS: BED, CHAIR, WHEELCHAIR: TRANSFERS: BED, CHAIR, WHEELCHAIR - STEP 1: Does the patient require assistance of a person or device, or need extra time with bed, chair, or whe elchair transfers? Yes. TRANSFERS: BED, CHAIR, WHEELCHAIR - STEP 2: Does the patient require the assistance of a helper? Yes. TRANSFERS: BED, CHAIR, WHEELCHAIR - STEP 3: How much assistance does the patient require from the helper? Only supervision TRANSFERS: BED, CHAIR, WHEELCHAIR - SCORE: 5-SUP TRANSFERS: TOILET: TRANSFERS: TOILET - STEP 1: Does the patient require the assistance of a person or device, or need extra time with toilet transfe rs? Yes. TRANSFERS: TOILET - STEP 2: Does the patient require the assistance of a helper? No. Patient only requires an assistive device doll ch as a grab bar or special seat, OR s/he takes more than reasonable time to perform toilet transfers , OR there is a safety concern when s/he performs toilet transfers. TRANSFERS: TOILET - SCORE: 6-LIZ TRANSFERS: SHOWER: Activity did not occur on this shift TRANSFERS: SHOWER - SCORE: 0-UNK TRANSFERS: TUB: TRANSFERS: TUB - STEP 1: Does the patient require the assistance of a person or device, or need extra time with tub transfers? Yes. TRANSFERS: TUB - STEP 2: Does the patient require the assistance of a helper? Yes. TRANSFERS: TUB - STEP 3: How much assistance does the patient require from the helper? Only supervision, cuing, coaxing, or he lp to set out transfer equipment or to lock brakes and/or lift foot rests TRANSFERS: TUB - SCORE: 5-SUP LOCOMOTION: WALK: Activity did not occur on this shift LOCOMOTION: WALK - SCORE: 0-UNK LOCOMOTION: WHEELCHAIR: Activity did not occur on this shift LOCOMOTION: WHEELCHAIR - SCORE: 0-UNK LOCOMOTION: STAIRS: Activity did not occur on this shift LOCOMOTION: STAIRS - SCORE: 0-UNK COMPREHENSION: COMPREHENSION: TYPE: Auditory COMPREHENSION - STEP 1: Does the patient require help from a person or device, or need extra time to understand complex and a bstract ideas (such as current events, finances, discharge planning, medical issues, relationships, e tc)? No. COMPREHENSION - STEP 2: Does the patient need extra time, require an assistive device (such as glasses for visual comprehensi on or a hearing aid for auditory comprehension) or does s/he have mild difficulty understanding compl ex and abstract information? Yes. COMPREHENSION - SCORE: 6-LIZ EXPRESSION EXPRESSION: TYPE: Both EXPRESSION - STEP 1: Does the patient require help from a person or device, or need extra time expressing complex and abst ract ideas (such as current events, finances, discharge planning, medical issues, relationships, etc) ? No. EXPRESSION - STEP 2: Does the patient need extra time, require an assistive device (such as augmentive communication syste m or a communication board), OR does s/he have mild difficulty expressing complex and abstract ideas (including mild dysarthria or mild word-find problems)? No. EXPRESSION - SCORE: 7-IND SOCIAL INTERACTION: SOCIAL INTERACTION - STEP 1: Does the patient require a helper to interact with others in social and therapeutic situations? No. SOCIAL INTERACTION - STEP 2: Does the patient need extra time in social situations, OR does s/he interact with staff, other patien ts, and family members ONLY in structured environments, OR does s/he require medication for social in teraction? No. SOCIAL INTERACTION - SCORE: 7-IND PROBLEM SOLVING: PROBLEM SOLVING - STEP 1: Does the patient need help from a person or device, or need extra time to solve complex problems such as managing a checking account or confronting interpersonal problems? Yes. PROBLEM SOLVING - STEP 2: Does the patient solve basic routine problems half or more of the time? Yes. PROBLEM SOLVING - STEP 3: How often does the patient need help to solve basic routine problems? Less than 10% of the time PROBLEM SOLVING - SCORE: 5-SUP MEMORY: MEMORY - STEP 1: Does the patient need help from a person or device, or need extra time to remember frequently encount ered people, daily routines, and executing requests? No. MEMORY - STEP 2: Does the patient have slight difficulty recognizing frequently encountered people, daily routines, or executing requests without the need for repetition or using self-initiated or environmental cues to remember? Yes. MEMORY - SCORE: 6-LIZ SIGNATURE PANEL: The following modified sections: Eating - Score, Grooming - Score, Bathing - Score, Dressing - Upper Body - Score, Dressing - Lower Body - Score, Toileting - Score, Transfers: Bed, Chair, Wheelchair - S core, Transfers: Toilet - Score, Transfers: Shower - Score, Transfers: Tub - Score, Comprehension - S core, Expression - Score, Social Interaction - Score, Problem Solving - Score, Memory - Score were [e lectronically] signed by Brooke Quick OT on TueSep 29 2018 13:40:20 T-0500 ([facility] Time)
[2018-09-29] MEDS: GABAPENTIN 300 MG CAP PO SCH (19:10)
[2018-09-29] MEDS: MELATONIN 3 MG TABLET PO PRN (21:27)
[2018-09-30] MEDS: HYDROCODONE/APAP 10/325 TAB PO PRN ×5 (01:08→19:08)
[2018-09-30] MEDS: METHOCARBAMOL 750 MG TAB PO PRN (04:05)
[2018-09-30] MEDS: TRAMADOL HCL 50 MG TAB PO PRN ×5 (04:05→21:12)
[2018-09-30] MEDS: HOME MED 1 EA UNK PO SCH ×2 (08:00)
[2018-09-30] MEDS: MULTIVITAMIN TAB PO SCH (08:09)
[2018-09-30] MEDS: FE SULF/FA/VIT B COMP & C TAB PO SCH (08:09)
[2018-09-30] MEDS: FERROUS SULFATE 325 MG TAB PO SCH (08:09)
[2018-09-30] MEDS: GABAPENTIN 300 MG CAP PO SCH ×2 (08:09→19:07)
[2018-09-30] MEDS: MELOXICAM 7.5 MG TAB PO SCH (08:09)
[2018-09-30] MEDS: DOCUSATE NA 100 MG CAP PO SCH ×2 (08:10→19:07)
[2018-09-30] MEDS: APIXABAN 2.5 MG TABLET PO SCH ×2 (08:10→19:08)
[2018-09-30] MEDS: PROMOD 30 ML DOSE PO SCH ×2 (08:50→19:09)
[2018-09-30] MEDS: DOCUSATE NA/SENNA CONC 1 TAB PO PRN (19:08)
[2018-09-30] MEDS: MELATONIN 3 MG TABLET PO PRN (21:14)
[2018-10-01] MEDS: HYDROCODONE/APAP 10/325 TAB PO PRN ×6 (00:08→21:19)
[2018-10-01] MEDS: TRAMADOL HCL 50 MG TAB PO PRN ×5 (02:13→19:17)
[2018-10-01] MEDS: HOME MED 1 EA UNK PO SCH ×2 (08:00)
[2018-10-01] MEDS: PROMOD 30 ML DOSE PO SCH ×2 (08:00→19:18)
[2018-10-01] MEDS: MULTIVITAMIN TAB PO SCH (08:02)
[2018-10-01] MEDS: GABAPENTIN 300 MG CAP PO SCH ×2 (08:02→19:18)
[2018-10-01] MEDS: MELOXICAM 7.5 MG TAB PO SCH (08:02)
[2018-10-01] MEDS: DOCUSATE NA 100 MG CAP PO SCH ×2 (08:02→19:18)
[2018-10-01] MEDS: FERROUS SULFATE 325 MG TAB PO SCH (08:07)
[2018-10-01] MEDS: APIXABAN 2.5 MG TABLET PO SCH ×2 (08:07→19:18)
[2018-10-01] MEDS: FE SULF/FA/VIT B COMP & C TAB PO SCH (08:07)
[2018-10-01] MEDS: DOCUSATE NA/SENNA CONC 1 TAB PO PRN (19:18)
--- NOTE | 2018-10-01 20:44 | FAST ---
SHIFT START DATE/TIME: 09/30/2018 19:00 (CDT) SHIFT END DATE/TIME: 10/01/2018 07:00 (CDT) NAME KWAN AVILA DATE OF : 1960 DATE OF ADMISSION: 09/26/2018 17:45 (CDT) PHONE: AGE: 58 N# [id number] GENDER: Female ENCOUNTER PHYSICIAN: Dr. Christiano Smith M.D. 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 EATING: Activity did not occur on this shift EATING - SCORE: 0-UNK GROOMING: Activity did not occur on this shift GROOMING - SCORE: 0-UNK BATHING: Activity did not occur on this shift BATHING - SCORE: 0-UNK DRESSING - UPPER BODY: Activity did not occur on this shift ARTICLES SCORE Total number of steps: 0 DRESSING - UPPER BODY - SCORE: 0-UNK DRESSING - LOWER BODY: Activity did not occur on this shift ARTICLES SCORE Total number of steps: 0 DRESSING - LOWER BODY - SCORE: 0-UNK TOILETING: TOILETING - SCORE: 0-UNK BLADDER MANAGEMENT: BLADDER MANAGEMENT - STEP 1: Does the patient control the bladder completely and intentionally without equipment or devices or med ications, and is always continent? No. BLADDER MANAGEMENT - STEP 2: Does the patient require the assistance of a helper? No, patient only requires extra time BLADDER MANAGEMENT - SCORE: 6-LIZ BLADDER MANAGEMENT - FREQUENCY OF ACCIDENTS: BLADDER MANAGEMENT(FA) - STEP 1: How many accidents has the patient had during the current shift? 0 BOWEL MANAGEMENT: Activity did not occur on this shift BOWEL MANAGEMENT - SCORE: 7-IND BOWEL MANAGEMENT - FREQUENCY OF ACCIDENTS: BOWEL MANAGEMENT(FA) - STEP 1: How many accidents has the patient had during the current shift? 0 TRANSFERS: BED, CHAIR, WHEELCHAIR: TRANSFERS: BED, CHAIR, WHEELCHAIR - STEP 1: Does the patient require assistance of a person or device, or need extra time with bed, chair, or whe elchair transfers? Yes. TRANSFERS: BED, CHAIR, WHEELCHAIR - STEP 2: Does the patient require the assistance of a helper? Yes. TRANSFERS: BED, CHAIR, WHEELCHAIR - STEP 3: How much assistance does the patient require from the helper? Only supervision TRANSFERS: BED, CHAIR, WHEELCHAIR - SCORE: 5-SUP TRANSFERS: TOILET: TRANSFERS: TOILET - STEP 1: Does the patient require the assistance of a person or device, or need extra time with toilet transfe rs? Yes. TRANSFERS: TOILET - STEP 2: Does the patient require the assistance of a helper? Yes. TRANSFERS: TOILET - STEP 3: How much assistance does the patient require from the helper? Only supervision, cuing, coaxing, OR he lp to set out transfer equipment or to lock brakes and/or lift foot rests TRANSFERS: TOILET - SCORE: 5-SUP TRANSFERS: SHOWER: Activity did not occur on this shift TRANSFERS: SHOWER - SCORE: 0-UNK TRANSFERS: TUB: Activity did not occur on this shift TRANSFERS: TUB - SCORE: 0-UNK LOCOMOTION: WALK: Activity did not occur on this shift LOCOMOTION: WALK - SCORE: 0-UNK LOCOMOTION: WHEELCHAIR: Activity did not occur on this shift LOCOMOTION: WHEELCHAIR - SCORE: 0-UNK COMPREHENSION: COMPREHENSION: TYPE: Both COMPREHENSION - STEP 1: Does the patient require help from a person or device, or need extra time to understand complex and a bstract ideas (such as current events, finances, discharge planning, medical issues, relationships, e tc)? No. COMPREHENSION - STEP 2: Does the patient need extra time, require an assistive device (such as glasses for visual comprehensi on or a hearing aid for auditory comprehension) or does s/he have mild difficulty understanding compl ex and abstract information? Yes. COMPREHENSION - SCORE: 6-LIZ EXPRESSION EXPRESSION: TYPE: Both EXPRESSION - STEP 1: Does the patient require help from a person or device, or need extra time expressing complex and abst ract ideas (such as current events, finances, discharge planning, medical issues, relationships, etc) ? No. EXPRESSION - STEP 2: Does the patient need extra time, require an assistive device (such as augmentive communication syste m or a communication board), OR does s/he have mild difficulty expressing complex and abstract ideas (including mild dysarthria or mild word-find problems)? Yes. EXPRESSION - SCORE: 6-LIZ SOCIAL INTERACTION: SOCIAL INTERACTION - STEP 1: Does the patient require a helper to interact with others in social and therapeutic situations? No. SOCIAL INTERACTION - STEP 2: Does the patient need extra time in social situations, OR does s/he interact with staff, other patien ts, and family members ONLY in structured environments, OR does s/he require medication for social in teraction? Yes, patient needs extra time SOCIAL INTERACTION - SCORE: 6-LIZ PROBLEM SOLVING: PROBLEM SOLVING - STEP 1: Does the patient need help from a person or device, or need extra time to solve complex problems such as managing a checking account or confronting interpersonal problems? No. PROBLEM SOLVING - STEP 2: Does the patient require extra time to make decisions or solve problems, OR does s/he have slight dif ficulty reading, initiating, or self-correcting in unfamiliar situations? Yes, patient needs extra ti me. PROBLEM SOLVING - SCORE: 6-LIZ MEMORY: MEMORY - STEP 1: Does the patient need help from a person or device, or need extra time to remember frequently encount ered people, daily routines, and executing requests? No. MEMORY - STEP 2: Does the patient have slight difficulty recognizing frequently encountered people, daily routines, or executing requests without the need for repetition or using self-initiated or environmental cues to remember? Yes. MEMORY - SCORE: 6-LIZ SIGNATURE PANEL: The following modified sections: Eating - Score, Grooming - Score, Bathing - Score, Dressing - Upper Body - Score, Dressing - Lower Body - Score, Bladder Management - Score, Bowel Management - Score, Tr ansfers: Bed, Chair, Wheelchair - Score, Transfers: Toilet - Score, Transfers: Shower - Score, Transf ers: Tub - Score, Locomotion: Walk - Score, Locomotion: Wheelchair - Score, Comprehension - Score, Ex pression - Score, Social Interaction - Score, Problem Solving - Score, Memory - Score were [grisi phyllis] signed by Shaneka Grajeda RN on TueOct 01 2018 20:43:38 GMT-0500 (Central Daylight Time)
[2018-10-01] MEDS: MELATONIN 3 MG TABLET PO PRN (21:19)
[2018-10-02] MEDS: TRAMADOL HCL 50 MG TAB PO PRN ×5 (00:17→20:57)
[2018-10-02] MEDS: HYDROCODONE/APAP 10/325 TAB PO PRN ×5 (02:38→23:18)
[2018-10-02] MEDS: MULTIVITAMIN TAB PO SCH (08:18)
[2018-10-02] MEDS: DOCUSATE NA 100 MG CAP PO SCH ×2 (08:18→20:56)
[2018-10-02] MEDS: GABAPENTIN 300 MG CAP PO SCH ×2 (08:18→20:56)
[2018-10-02] MEDS: APIXABAN 2.5 MG TABLET PO SCH ×2 (08:18→20:57)
[2018-10-02] MEDS: MELOXICAM 7.5 MG TAB PO SCH (08:18)
[2018-10-02] MEDS: FERROUS SULFATE 325 MG TAB PO SCH (08:18)
[2018-10-02] MEDS: FE SULF/FA/VIT B COMP & C TAB PO SCH (08:18)
[2018-10-02] MEDS: PROMOD 30 ML DOSE PO SCH ×2 (08:20→20:58)
--- NOTE | 2018-10-02 15:01 | FAST ---
SHIFT START DATE/TIME: 10/02/2018 07:00 (CDT) SHIFT END DATE/TIME: 10/02/2018 19:00 (CDT) NAME KWAN AVILA DATE OF : 1960 DATE OF ADMISSION: 09/26/2018 17:45 (CDT) PHONE: AGE: 58 N# [id number] GENDER: Female ENCOUNTER PHYSICIAN: Dr. Christiano Smith M.D. 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 EATING: EATING - STEP 1: Does the patient require the assistance of a person or device, or need extra time when eating? Yes. EATING - STEP 2: Does the patient require the assistance of a helper? No, patient only requires an assistive device, O R s/he takes more than reasonable time to eat, OR there is a safety concern, OR s/he requires modifie d food consistency EATING - SCORE: 6-LIZ GROOMING: Comb/brush hair Oral care Wash, rinse, and dry face Wash, rinse, and dry hands GROOMING - STEP 1: Does the patient require the assistance of a person or device, or need extra time when grooming? Yes. GROOMING - STEP 2: Does the patient require the assistance of a helper? No. The patient only requires an assistive devic e, OR takes more than reasonable time to groom, OR there is a concern for safety as the patient groom s GROOMING - SCORE: 6-LIZ BATHING: Activity did not occur on this shift BATHING - SCORE: 0-UNK DRESSING - UPPER BODY: Activity did not occur on this shift ARTICLES SCORE Total number of steps: 0 DRESSING - UPPER BODY - SCORE: 0-UNK DRESSING - LOWER BODY: Activity did not occur on this shift ARTICLES SCORE Total number of steps: 0 DRESSING - LOWER BODY - SCORE: 0-UNK TOILETING: TOILETING - STEP 1: Does the patient require the assistance of a person or device, or need extra time with toileting? Yes . TOILETING - STEP 2: Does the patient require the assistance of a helper? No. TOILETING - SCORE: 6-LIZ BLADDER MANAGEMENT: BLADDER MANAGEMENT - STEP 1: Does the patient control the bladder completely and intentionally without equipment or devices or med ications, and is always continent? No. BLADDER MANAGEMENT - STEP 2: Does the patient require the assistance of a helper? No, patient requires and independently uses an a ssistive device, such as a urinal, bedpan, bedside commode, catheter, absorbent pad, or collecting de vice BLADDER MANAGEMENT - SCORE: 6-LIZ BOWEL MANAGEMENT: Activity did not occur on this shift BOWEL MANAGEMENT - SCORE: 7-IND TRANSFERS: BED, CHAIR, WHEELCHAIR: TRANSFERS: BED, CHAIR, WHEELCHAIR - STEP 1: Does the patient require assistance of a person or device, or need extra time with bed, chair, or whe elchair transfers? Yes. TRANSFERS: BED, CHAIR, WHEELCHAIR - STEP 2: Does the patient require the assistance of a helper? Yes. TRANSFERS: BED, CHAIR, WHEELCHAIR - STEP 3: How much assistance does the patient require from the helper? Only supervision TRANSFERS: BED, CHAIR, WHEELCHAIR - SCORE: 5-SUP TRANSFERS: TOILET: TRANSFERS: TOILET - STEP 1: Does the patient require the assistance of a person or device, or need extra time with toilet transfe rs? Yes. TRANSFERS: TOILET - STEP 2: Does the patient require the assistance of a helper? No. Patient only requires an assistive device doll ch as a grab bar or special seat, OR s/he takes more than reasonable time to perform toilet transfers , OR there is a safety concern when s/he performs toilet transfers. TRANSFERS: TOILET - SCORE: 6-LIZ TRANSFERS: SHOWER: Activity did not occur on this shift TRANSFERS: SHOWER - SCORE: 0-UNK TRANSFERS: TUB: Activity did not occur on this shift TRANSFERS: TUB - SCORE: 0-UNK LOCOMOTION: WALK: Activity did not occur on this shift LOCOMOTION: WALK - SCORE: 0-UNK LOCOMOTION: WHEELCHAIR: Activity did not occur on this shift LOCOMOTION: WHEELCHAIR - SCORE: 0-UNK COMPREHENSION: COMPREHENSION: TYPE: Both COMPREHENSION - STEP 1: Does the patient require help from a person or device, or need extra time to understand complex and a bstract ideas (such as current events, finances, discharge planning, medical issues, relationships, e tc)? No. COMPREHENSION - STEP 2: Does the patient need extra time, require an assistive device (such as glasses for visual comprehensi on or a hearing aid for auditory comprehension) or does s/he have mild difficulty understanding compl ex and abstract information? Yes. COMPREHENSION - SCORE: 6-LIZ EXPRESSION EXPRESSION: TYPE: Both EXPRESSION - STEP 1: Does the patient require help from a person or device, or need extra time expressing complex and abst ract ideas (such as current events, finances, discharge planning, medical issues, relationships, etc) ? No. EXPRESSION - STEP 2: Does the patient need extra time, require an assistive device (such as augmentive communication syste m or a communication board), OR does s/he have mild difficulty expressing complex and abstract ideas (including mild dysarthria or mild word-find problems)? Yes. EXPRESSION - SCORE: 6-LIZ SOCIAL INTERACTION: SOCIAL INTERACTION - STEP 1: Does the patient require a helper to interact with others in social and therapeutic situations? No. SOCIAL INTERACTION - STEP 2: Does the patient need extra time in social situations, OR does s/he interact with staff, other patien ts, and family members ONLY in structured environments, OR does s/he require medication for social in teraction? Yes, patient needs extra time SOCIAL INTERACTION - SCORE: 6-LIZ PROBLEM SOLVING: PROBLEM SOLVING - STEP 1: Does the patient need help from a person or device, or need extra time to solve complex problems such as managing a checking account or confronting interpersonal problems? No. PROBLEM SOLVING - STEP 2: Does the patient require extra time to make decisions or solve problems, OR does s/he have slight dif ficulty reading, initiating, or self-correcting in unfamiliar situations? Yes, patient needs extra ti me. PROBLEM SOLVING - SCORE: 6-LIZ MEMORY: MEMORY - STEP 1: Does the patient need help from a person or device, or need extra time to remember frequently encount ered people, daily routines, and executing requests? No. MEMORY - STEP 2: Does the patient have slight difficulty recognizing frequently encountered people, daily routines, or executing requests without the need for repetition or using self-initiated or environmental cues to remember? Yes. MEMORY - SCORE: 6-LIZ SIGNATURE PANEL: The following modified sections: Eating - Score, Grooming - Score, Bathing - Score, Dressing - Upper Body - Score, Dressing - Lower Body - Score, Toileting - Score, Bladder Management - Score, Bowel Man agement - Score, Transfers: Bed, Chair, Wheelchair - Score, Transfers: Toilet - Score, Transfers: Dyana wer - Score, Transfers: Tub - Score, Locomotion: Walk - Score, Locomotion: Wheelchair - Score, Compre hension - Score, Expression - Score, Social Interaction - Score, Problem Solving - Score, Memory - Sc ore were [electronically] signed by Austen Chandra on TueOct 02 2018 15:00:32 GMT-0500 (Central Daylight Time)
--- NOTE | 2018-10-02 15:52 | FAST ---
ENCOUNTER DATE AND TIME: 10/02/2018 08:00 (CDT) NAME KWAN AVILA DATE OF : 1960 DATE OF ADMISSION: 09/26/2018 17:45 (CDT) PHONE: AGE: 58 SSN# [id number] GENDER: Female ENCOUNTER PHYSICIAN: Dr. Christiano Smith M.D. 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 EATING: Activity did not occur on this shift EATING - SCORE: 0-UNK GROOMING: Activity did not occur on this shift GROOMING - SCORE: 0-UNK BATHING: Activity did not occur on this shift BATHING - SCORE: 0-UNK DRESSING - UPPER BODY: Activity did not occur on this shift Patient is not dressing in public clothing ARTICLES SCORE Total number of steps: 0 DRESSING - UPPER BODY - SCORE: 0-UNK DRESSING - LOWER BODY: Activity did not occur on this shift Patient is not dressing in public clothing ARTICLES SCORE Total number of steps: 0 DRESSING - LOWER BODY - SCORE: 0-UNK TOILETING: Activity did not occur on this shift TOILETING - SCORE: 0-UNK BLADDER MANAGEMENT: Activity did not occur on this shift BLADDER MANAGEMENT - SCORE: 7-IND BOWEL MANAGEMENT: Activity did not occur on this shift BOWEL MANAGEMENT - SCORE: 7-IND TRANSFERS: BED, CHAIR, WHEELCHAIR: TRANSFERS: BED, CHAIR, WHEELCHAIR - STEP 1: Does the patient require assistance of a person or device, or need extra time with bed, chair, or whe elchair transfers? Yes. TRANSFERS: BED, CHAIR, WHEELCHAIR - STEP 2: Does the patient require the assistance of a helper? No. Patient only requires an assistive device fo r bed, chair, wheelchair transfers such as a sliding board, grab bar, or brace, OR s/he takes more th an reasonable time, OR there is a safety concern when s/he performs the transfers TRANSFERS: BED, CHAIR, WHEELCHAIR - SCORE: 6-LIZ TRANSFERS: TOILET: TRANSFERS: TOILET - STEP 1: Does the patient require the assistance of a person or device, or need extra time with toilet transfe rs? Yes. TRANSFERS: TOILET - STEP 2: Does the patient require the assistance of a helper? No. Patient only requires an assistive device doll ch as a grab bar or special seat, OR s/he takes more than reasonable time to perform toilet transfers , OR there is a safety concern when s/he performs toilet transfers. TRANSFERS: TOILET - SCORE: 6-LIZ TRANSFERS: SHOWER: Activity did not occur on this shift TRANSFERS: SHOWER - SCORE: 0-UNK TRANSFERS: TUB: Activity did not occur on this shift TRANSFERS: TUB - SCORE: 0-UNK LOCOMOTION: WALK: LOCOMOTION: WALK - STEP 1: Does the patient need help from a person or device, or need extra time to walk 150 feet? No. LOCOMOTION: WALK - STEP 2: Does the patient need an assistive device (such as an orthosis, prosthesis, crutches, or walker) to g o 150 feet, OR does s/he take more than reasonable time, OR is there a concern for safety? Yes, the p atient needs an assistive device LOCOMOTION: WALK - SCORE: 6-LIZ LOCOMOTION: WHEELCHAIR: Activity did not occur on this shift LOCOMOTION: WHEELCHAIR - SCORE: 0-UNK LOCOMOTION: STAIRS: Activity did not occur on this shift LOCOMOTION: STAIRS - SCORE: 0-UNK COMPREHENSION: COMPREHENSION - SCORE: 0-UNK EXPRESSION EXPRESSION - SCORE: 0-UNK SOCIAL INTERACTION: SOCIAL INTERACTION - SCORE: 0-UNK PROBLEM SOLVING: PROBLEM SOLVING - SCORE: 0-UNK MEMORY: MEMORY - SCORE: 0-UNK SIGNATURE PANEL: The following modified sections: Transfers: Bed, Chair, Wheelchair - Score, Transfers: Toilet - Score , Locomotion: Walk - Score, Locomotion: Wheelchair - Score, Locomotion: Stairs - Score were [gris teresa] signed by Bradly Ayoub PT on TueOct 02 2018 15:52:22 GMT-0500 (Central Daylight Time)
[2018-10-02] MEDS: METHOCARBAMOL 750 MG TAB PO PRN (16:34)
[2018-10-02] MEDS ORDERED: HYDROCODONE/APAP 5/325 MG TAB PO PRN (16:57)
[2018-10-02] MEDS: DOCUSATE NA/SENNA CONC 1 TAB PO SCH (20:56)
[2018-10-03] MEDS: TRAMADOL HCL 50 MG TAB PO PRN ×5 (02:44→19:10)
[2018-10-03] MEDS: METHOCARBAMOL 750 MG TAB PO PRN ×3 (02:44→18:01)
[2018-10-03] MEDS: HYDROCODONE/APAP 10/325 TAB PO PRN ×5 (05:18→21:05)
[2018-10-03] MEDS: MELOXICAM 7.5 MG TAB PO SCH (07:22)
[2018-10-03] MEDS ORDERED: LIDOCAINE 5% PATCH TOP SCH (08:00)
[2018-10-03] MEDS: MULTIVITAMIN TAB PO SCH (08:11)
[2018-10-03] MEDS: FE SULF/FA/VIT B COMP & C TAB PO SCH (08:12)
[2018-10-03] MEDS: FERROUS SULFATE 325 MG TAB PO SCH (08:12)
[2018-10-03] MEDS: PROMOD 30 ML DOSE PO SCH ×2 (08:12→21:19)
[2018-10-03] MEDS: GABAPENTIN 300 MG CAP PO SCH ×2 (08:12→20:59)
[2018-10-03] MEDS: DOCUSATE NA 100 MG CAP PO SCH ×2 (08:12→20:58)
[2018-10-03] MEDS: APIXABAN 2.5 MG TABLET PO SCH ×2 (08:12→20:59)
--- NOTE | 2018-10-03 14:33 | FAST ---
SHIFT START DATE/TIME: 10/03/2018 07:00 (CDT) SHIFT END DATE/TIME: 10/03/2018 19:00 (CDT) NAME KWAN AVILA DATE OF : 1960 DATE OF ADMISSION: 09/26/2018 17:45 (CDT) PHONE: AGE: 58 N# [id number] GENDER: Female ENCOUNTER PHYSICIAN: Dr. Christiano Smith M.D. 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 EATING: EATING - STEP 1: Does the patient require the assistance of a person or device, or need extra time when eating? No. EATING - SCORE: 7-IND GROOMING: Comb/brush hair Oral care Wash, rinse, and dry hands GROOMING - STEP 1: Does the patient require the assistance of a person or device, or need extra time when grooming? Yes. GROOMING - STEP 2: Does the patient require the assistance of a helper? No. The patient only requires an assistive devic e, OR takes more than reasonable time to groom, OR there is a concern for safety as the patient groom s GROOMING - SCORE: 6-LIZ BATHING: Activity did not occur on this shift BATHING - SCORE: 0-UNK DRESSING - UPPER BODY: Activity did not occur on this shift ARTICLES SCORE Total number of steps: 0 DRESSING - UPPER BODY - SCORE: 0-UNK DRESSING - LOWER BODY: Activity did not occur on this shift ARTICLES SCORE Total number of steps: 0 DRESSING - LOWER BODY - SCORE: 0-UNK TOILETING: TOILETING - STEP 1: Does the patient require the assistance of a person or device, or need extra time with toileting? Yes . TOILETING - STEP 2: Does the patient require the assistance of a helper? No. TOILETING - SCORE: 6-LIZ BLADDER MANAGEMENT: BLADDER MANAGEMENT - STEP 1: Does the patient control the bladder completely and intentionally without equipment or devices or med ications, and is always continent? No. BLADDER MANAGEMENT - STEP 2: Does the patient require the assistance of a helper? No, patient requires and independently uses an a ssistive device, such as a urinal, bedpan, bedside commode, catheter, absorbent pad, or collecting de vice BLADDER MANAGEMENT - SCORE: 6-LIZ BOWEL MANAGEMENT: BOWEL MANAGEMENT - STEP 1: Does the patient control bowels completely and intentionally without equipment devices or medications AND is always continent? No. BOWEL MANAGEMENT - STEP 2: Does the patient require the assistance of a helper? No, patient requires and manages independently a n assistive device such as a bedpan, bedside commode, absorbent pad, incontinent device, or collectin g device BOWEL MANAGEMENT - SCORE: 6-LIZ TRANSFERS: BED, CHAIR, WHEELCHAIR: TRANSFERS: BED, CHAIR, WHEELCHAIR - STEP 1: Does the patient require assistance of a person or device, or need extra time with bed, chair, or whe elchair transfers? Yes. TRANSFERS: BED, CHAIR, WHEELCHAIR - STEP 2: Does the patient require the assistance of a helper? No. Patient only requires an assistive device fo r bed, chair, wheelchair transfers such as a sliding board, grab bar, or brace, OR s/he takes more th an reasonable time, OR there is a safety concern when s/he performs the transfers TRANSFERS: BED, CHAIR, WHEELCHAIR - SCORE: 6-LIZ TRANSFERS: TOILET: TRANSFERS: TOILET - STEP 1: Does the patient require the assistance of a person or device, or need extra time with toilet transfe rs? Yes. TRANSFERS: TOILET - STEP 2: Does the patient require the assistance of a helper? No. Patient only requires an assistive device doll ch as a grab bar or special seat, OR s/he takes more than reasonable time to perform toilet transfers , OR there is a safety concern when s/he performs toilet transfers. TRANSFERS: TOILET - SCORE: 6-LIZ TRANSFERS: SHOWER: Activity did not occur on this shift TRANSFERS: SHOWER - SCORE: 0-UNK TRANSFERS: TUB: Activity did not occur on this shift TRANSFERS: TUB - SCORE: 0-UNK LOCOMOTION: WALK: Activity did not occur on this shift LOCOMOTION: WALK - SCORE: 0-UNK LOCOMOTION: WHEELCHAIR: Activity did not occur on this shift LOCOMOTION: WHEELCHAIR - SCORE: 0-UNK COMPREHENSION: COMPREHENSION: TYPE: Both COMPREHENSION - STEP 1: Does the patient require help from a person or device, or need extra time to understand complex and a bstract ideas (such as current events, finances, discharge planning, medical issues, relationships, e tc)? No. COMPREHENSION - STEP 2: Does the patient need extra time, require an assistive device (such as glasses for visual comprehensi on or a hearing aid for auditory comprehension) or does s/he have mild difficulty understanding compl ex and abstract information? Yes. COMPREHENSION - SCORE: 6-LIZ EXPRESSION EXPRESSION: TYPE: Both EXPRESSION - STEP 1: Does the patient require help from a person or device, or need extra time expressing complex and abst ract ideas (such as current events, finances, discharge planning, medical issues, relationships, etc) ? No. EXPRESSION - STEP 2: Does the patient need extra time, require an assistive device (such as augmentive communication syste m or a communication board), OR does s/he have mild difficulty expressing complex and abstract ideas (including mild dysarthria or mild word-find problems)? Yes. EXPRESSION - SCORE: 6-LIZ SOCIAL INTERACTION: SOCIAL INTERACTION - STEP 1: Does the patient require a helper to interact with others in social and therapeutic situations? No. SOCIAL INTERACTION - STEP 2: Does the patient need extra time in social situations, OR does s/he interact with staff, other patien ts, and family members ONLY in structured environments, OR does s/he require medication for social in teraction? Yes, patient needs extra time SOCIAL INTERACTION - SCORE: 6-LIZ PROBLEM SOLVING: PROBLEM SOLVING - STEP 1: Does the patient need help from a person or device, or need extra time to solve complex problems such as managing a checking account or confronting interpersonal problems? No. PROBLEM SOLVING - STEP 2: Does the patient require extra time to make decisions or solve problems, OR does s/he have slight dif ficulty reading, initiating, or self-correcting in unfamiliar situations? Yes, patient needs extra ti me. PROBLEM SOLVING - SCORE: 6-LIZ MEMORY: MEMORY - STEP 1: Does the patient need help from a person or device, or need extra time to remember frequently encount ered people, daily routines, and executing requests? No. MEMORY - STEP 2: Does the patient have slight difficulty recognizing frequently encountered people, daily routines, or executing requests without the need for repetition or using self-initiated or environmental cues to remember? Yes. MEMORY - SCORE: 6-LIZ SIGNATURE PANEL: The following modified sections: Eating - Score, Grooming - Score, Bathing - Score, Dressing - Upper Body - Score, Dressing - Lower Body - Score, Toileting - Score, Bladder Management - Score, Bowel Man agement - Score, Transfers: Bed, Chair, Wheelchair - Score, Transfers: Toilet - Score, Transfers: Dyana wer - Score, Transfers: Tub - Score, Locomotion: Walk - Score, Locomotion: Wheelchair - Score, Compre hension - Score, Expression - Score, Social Interaction - Score, Problem Solving - Score, Memory - Sc ore were [electronically] signed by Austen Chandra on TueOct 03 2018 14:32:15 GMT-0500 (Central Daylight Time)
--- NOTE | 2018-10-03 16:11 | FAST ---
ENCOUNTER DATE AND TIME: 10/03/2018 08:00 (CDT) NAME KWAN AVILA DATE OF : 1960 DATE OF ADMISSION: 09/26/2018 17:45 (CDT) PHONE: AGE: 58 SSN# [id number] GENDER: Female ENCOUNTER PHYSICIAN: Dr. Christiano Smith M.D. 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 EATING: Activity did not occur on this shift EATING - SCORE: 0-UNK GROOMING: Activity did not occur on this shift GROOMING - SCORE: 0-UNK BATHING: Activity did not occur on this shift BATHING - SCORE: 0-UNK DRESSING - UPPER BODY: Activity did not occur on this shift Patient is not dressing in public clothing ARTICLES SCORE Total number of steps: 0 DRESSING - UPPER BODY - SCORE: 0-UNK DRESSING - LOWER BODY: Activity did not occur on this shift Patient is not dressing in public clothing ARTICLES SCORE Total number of steps: 0 DRESSING - LOWER BODY - SCORE: 0-UNK TOILETING: Activity did not occur on this shift TOILETING - SCORE: 0-UNK BLADDER MANAGEMENT: Activity did not occur on this shift BLADDER MANAGEMENT - SCORE: 7-IND BOWEL MANAGEMENT: Activity did not occur on this shift BOWEL MANAGEMENT - SCORE: 7-IND TRANSFERS: BED, CHAIR, WHEELCHAIR: TRANSFERS: BED, CHAIR, WHEELCHAIR - STEP 1: Does the patient require assistance of a person or device, or need extra time with bed, chair, or whe elchair transfers? Yes. TRANSFERS: BED, CHAIR, WHEELCHAIR - STEP 2: Does the patient require the assistance of a helper? No. Patient only requires an assistive device fo r bed, chair, wheelchair transfers such as a sliding board, grab bar, or brace, OR s/he takes more th an reasonable time, OR there is a safety concern when s/he performs the transfers TRANSFERS: BED, CHAIR, WHEELCHAIR - SCORE: 6-LIZ TRANSFERS: TOILET: Activity did not occur on this shift TRANSFERS: TOILET - SCORE: 0-UNK TRANSFERS: SHOWER: Activity did not occur on this shift TRANSFERS: SHOWER - SCORE: 0-UNK TRANSFERS: TUB: Activity did not occur on this shift TRANSFERS: TUB - SCORE: 0-UNK LOCOMOTION: WALK: LOCOMOTION: WALK - STEP 1: Does the patient need help from a person or device, or need extra time to walk 150 feet? No. LOCOMOTION: WALK - STEP 2: Does the patient need an assistive device (such as an orthosis, prosthesis, crutches, or walker) to g o 150 feet, OR does s/he take more than reasonable time, OR is there a concern for safety? Yes, the p atient needs an assistive device LOCOMOTION: WALK - SCORE: 6-LIZ LOCOMOTION: WHEELCHAIR: LOCOMOTION: WHEELCHAIR - STEP 1: Does the patient need help to go 150 feet in a wheelchair? No. LOCOMOTION: WHEELCHAIR - SCORE: 6-LIZ LOCOMOTION: STAIRS: LOCOMOTION: STAIRS - STEP 1: Does the patient need help to go up and down 12 to 14 stairs? No. LOCOMOTION: STAIRS - STEP 2: Does the patient require an assistive device - such as handrails or cane - to go up and down one flig ht of stairs, OR does s/he take more than reasonable time, OR is there a concern for safety? Yes, the patient requires an assistive device LOCOMOTION: STAIRS - SCORE: 6-LIZ COMPREHENSION: COMPREHENSION - SCORE: 0-UNK EXPRESSION EXPRESSION - SCORE: 0-UNK SOCIAL INTERACTION: SOCIAL INTERACTION - SCORE: 0-UNK PROBLEM SOLVING: PROBLEM SOLVING - SCORE: 0-UNK MEMORY: MEMORY - SCORE: 0-UNK SIGNATURE PANEL: The following modified sections: Transfers: Bed, Chair, Wheelchair - Score, Transfers: Toilet - Score , Locomotion: Walk - Score, Locomotion: Wheelchair - Score, Locomotion: Stairs - Score were [gris teresa] signed by Mariano Rodriguez PTA on TueOct 03 2018 16:09:57 GMT-0500 (Central Daylight Time)
[2018-10-03] MEDS: DOCUSATE NA/SENNA CONC 1 TAB PO SCH (20:59)
[2018-10-03] MEDS: TEMAZEPAM 15 MG CAP PO PRN (22:26)
[2018-10-04] MEDS: HYDROCODONE/APAP 10/325 TAB PO PRN ×5 (01:48→21:24)
[2018-10-04] MEDS: TRAMADOL HCL 50 MG TAB PO PRN ×4 (04:54→19:10)
[2018-10-04 06:14] LABS: Absolute Lymphocytes (CBC) 1.8 K/uL (0.7-4.9); Hematocrit 35.7 % (36.0-45.0); Lymphocytes % 28.2 % (15.3-44.8); MPV 8.7 fL (7.6-11.3); RBC Red Blood Cell Count 3.56 M/uL (3.86-4.86)
[2018-10-04 06:25] LABS: Albumin 3.4 g/dL (3.4-5.0); BUN Blood Urea Nitrogen 12 mg/dL (7-18); Bicarbonate 29 mmol/L (21-32); Glucose Level 112 mg/dL (74-106); Potassium 4.3 mmol/L (3.5-5.1); Prealbumin 22.4 mg/dL (20-40); Sodium Level 137 mmol/L (136-145)
[2018-10-04] MEDS: APIXABAN 2.5 MG TABLET PO SCH ×2 (08:06→19:11)
[2018-10-04] MEDS: DOCUSATE NA 100 MG CAP PO SCH ×2 (08:06→19:11)
[2018-10-04] MEDS: MELOXICAM 7.5 MG TAB PO SCH (08:07)
[2018-10-04] MEDS: FE SULF/FA/VIT B COMP & C TAB PO SCH (08:07)
[2018-10-04] MEDS: FERROUS SULFATE 325 MG TAB PO SCH (08:07)
[2018-10-04] MEDS: GABAPENTIN 300 MG CAP PO SCH ×2 (08:07→19:11)
[2018-10-04] MEDS: MULTIVITAMIN TAB PO SCH (08:07)
[2018-10-04] MEDS: PROMOD 30 ML DOSE PO SCH ×2 (08:08→19:11)
--- NOTE | 2018-10-04 11:42 | FAST ---
ENCOUNTER DATE AND TIME: 10/04/2018 08:00 (CDT) NAME KWAN AVILA DATE OF : 1960 DATE OF ADMISSION: 09/26/2018 17:45 (CDT) PHONE: AGE: 58 SSN# [id number] GENDER: Female ENCOUNTER PHYSICIAN: Dr. Christiano Smith M.D. 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 EATING: Activity did not occur on this shift EATING - SCORE: 0-UNK GROOMING: Activity did not occur on this shift GROOMING - SCORE: 0-UNK BATHING: Activity did not occur on this shift BATHING - SCORE: 0-UNK DRESSING - UPPER BODY: Activity did not occur on this shift Patient is not dressing in public clothing ARTICLES SCORE Total number of steps: 0 DRESSING - UPPER BODY - SCORE: 0-UNK DRESSING - LOWER BODY: Activity did not occur on this shift Patient is not dressing in public clothing ARTICLES SCORE Total number of steps: 0 DRESSING - LOWER BODY - SCORE: 0-UNK TOILETING: Activity did not occur on this shift TOILETING - SCORE: 0-UNK BLADDER MANAGEMENT: Activity did not occur on this shift BLADDER MANAGEMENT - SCORE: 7-IND BOWEL MANAGEMENT: Activity did not occur on this shift BOWEL MANAGEMENT - SCORE: 7-IND TRANSFERS: BED, CHAIR, WHEELCHAIR: TRANSFERS: BED, CHAIR, WHEELCHAIR - STEP 1: Does the patient require assistance of a person or device, or need extra time with bed, chair, or whe elchair transfers? Yes. TRANSFERS: BED, CHAIR, WHEELCHAIR - STEP 2: Does the patient require the assistance of a helper? No. Patient only requires an assistive device fo r bed, chair, wheelchair transfers such as a sliding board, grab bar, or brace, OR s/he takes more th an reasonable time, OR there is a safety concern when s/he performs the transfers TRANSFERS: BED, CHAIR, WHEELCHAIR - SCORE: 6-LIZ TRANSFERS: TOILET: TRANSFERS: TOILET - STEP 1: Does the patient require the assistance of a person or device, or need extra time with toilet transfe rs? Yes. TRANSFERS: TOILET - STEP 2: Does the patient require the assistance of a helper? No. Patient only requires an assistive device doll ch as a grab bar or special seat, OR s/he takes more than reasonable time to perform toilet transfers , OR there is a safety concern when s/he performs toilet transfers. TRANSFERS: TOILET - SCORE: 6-LIZ TRANSFERS: SHOWER: Activity did not occur on this shift TRANSFERS: SHOWER - SCORE: 0-UNK TRANSFERS: TUB: Activity did not occur on this shift TRANSFERS: TUB - SCORE: 0-UNK LOCOMOTION: WALK: LOCOMOTION: WALK - STEP 1: Does the patient need help from a person or device, or need extra time to walk 150 feet? No. LOCOMOTION: WALK - STEP 2: Does the patient need an assistive device (such as an orthosis, prosthesis, crutches, or walker) to g o 150 feet, OR does s/he take more than reasonable time, OR is there a concern for safety? Yes, the p atient needs an assistive device LOCOMOTION: WALK - SCORE: 6-LIZ LOCOMOTION: WHEELCHAIR: Activity did not occur on this shift LOCOMOTION: WHEELCHAIR - SCORE: 0-UNK LOCOMOTION: STAIRS: Activity did not occur on this shift LOCOMOTION: STAIRS - SCORE: 0-UNK COMPREHENSION: COMPREHENSION - SCORE: 0-UNK EXPRESSION EXPRESSION - SCORE: 0-UNK SOCIAL INTERACTION: SOCIAL INTERACTION - SCORE: 0-UNK PROBLEM SOLVING: PROBLEM SOLVING - SCORE: 0-UNK MEMORY: MEMORY - SCORE: 0-UNK SIGNATURE PANEL: The following modified sections: Transfers: Bed, Chair, Wheelchair - Score, Transfers: Toilet - Score , Locomotion: Walk - Score, Locomotion: Wheelchair - Score, Locomotion: Stairs - Score were [gris teresa] signed by Brooke Norman PTA on TueOct 04 2018 11:42:20 GMT-0500 (Central Daylight Time)
--- NOTE | 2018-10-04 12:29 | FAST ---
ENCOUNTER DATE AND TIME: 10/04/2018 08:00 (CDT) NAME KWAN AVILA DATE OF : 1960 DATE OF ADMISSION: 09/26/2018 17:45 (CDT) PHONE: AGE: 58 SSN# [id number] GENDER: Female ENCOUNTER PHYSICIAN: Dr. Christiano Smith M.D. 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 EATING: Activity did not occur on this shift EATING - SCORE: 0-UNK GROOMING: Comb/brush hair Wash, rinse, and dry face Wash, rinse, and dry hands GROOMING - STEP 1: Does the patient require the assistance of a person or device, or need extra time when grooming? No. GROOMING - SCORE: 7-IND BATHING: Abdomen Buttocks Chest Left arm Left lower leg and foot Left upper leg Perineal area Right arm Right lower leg and foot Right upper leg BATHING - STEP 1: Does the patient require the assistance of a person or device, or need extra time when bathing? Yes. BATHING - STEP 2: Does the patient require the assistance of a helper? No. The patient only requires an assistive devic e such as a bath claire, OR the patient takes more than reasonable time to bathe, OR there is a concern for safety such as regulating water temperature as the patient bathes. BATHING - SCORE: 6-LIZ DRESSING - UPPER BODY: Bra (three steps) T-shirt/pullover shirt (four steps) ARTICLES SCORE Total number of steps: 7 DRESSING - UPPER BODY - STEP 1: Does the patient require help from a person or device, or need extra time when dressing above the ayo st? No. DRESSING - UPPER BODY - SCORE: 7-IND DRESSING - LOWER BODY: Elastic waist pants (three steps) Slip-on shoe - Left foot (one step) Slip-on shoe - Right foot (one step) Underwear (three steps) ARTICLES SCORE Total number of steps: 8 DRESSING - LOWER BODY - STEP 1: Does the patient require help from a person or device, or need extra time when dressing below the ayo st? Yes. DRESSING - LOWER BODY - STEP 2: Does the patient require the assistance of a helper? No. Patient requires an assistive device such as a surveillance analyst. OR s/he takes more than reasonable time as s/he dresses the lower body, OR there is a con cern for safety when s/he dresses the lower body DRESSING - LOWER BODY - SCORE: 6-LIZ TOILETING: TOILETING - STEP 1: Does the patient require the assistance of a person or device, or need extra time with toileting? Yes . TOILETING - STEP 2: Does the patient require the assistance of a helper? No. TOILETING - SCORE: 6-LIZ BLADDER MANAGEMENT: Activity did not occur on this shift BLADDER MANAGEMENT - SCORE: 7-IND BOWEL MANAGEMENT: Activity did not occur on this shift BOWEL MANAGEMENT - SCORE: 7-IND TRANSFERS: BED, CHAIR, WHEELCHAIR: Activity did not occur on this shift TRANSFERS: BED, CHAIR, WHEELCHAIR - SCORE: 0-UNK TRANSFERS: TOILET: TRANSFERS: TOILET - STEP 1: Does the patient require the assistance of a person or device, or need extra time with toilet transfe rs? Yes. TRANSFERS: TOILET - STEP 2: Does the patient require the assistance of a helper? No. Patient only requires an assistive device doll ch as a grab bar or special seat, OR s/he takes more than reasonable time to perform toilet transfers , OR there is a safety concern when s/he performs toilet transfers. TRANSFERS: TOILET - SCORE: 6-LIZ TRANSFERS: SHOWER: Activity did not occur on this shift TRANSFERS: SHOWER - SCORE: 0-UNK TRANSFERS: TUB: TRANSFERS: TUB - STEP 1: Does the patient require the assistance of a person or device, or need extra time with tub transfers? Yes. TRANSFERS: TUB - STEP 2: Does the patient require the assistance of a helper? No. Only requires the assistance of an assistive device, OR takes more than reasonable time, OR there is a concern for safety when s/he performs tub transfers TRANSFERS: TUB - SCORE: 6-LIZ LOCOMOTION: WALK: Activity did not occur on this shift LOCOMOTION: WALK - SCORE: 0-UNK LOCOMOTION: WHEELCHAIR: Activity did not occur on this shift LOCOMOTION: WHEELCHAIR - SCORE: 0-UNK LOCOMOTION: STAIRS: Activity did not occur on this shift LOCOMOTION: STAIRS - SCORE: 0-UNK COMPREHENSION: COMPREHENSION: TYPE: Visual COMPREHENSION - STEP 1: Does the patient require help from a person or device, or need extra time to understand complex and a bstract ideas (such as current events, finances, discharge planning, medical issues, relationships, e tc)? No. COMPREHENSION - STEP 2: Does the patient need extra time, require an assistive device (such as glasses for visual comprehensi on or a hearing aid for auditory comprehension) or does s/he have mild difficulty understanding compl ex and abstract information? Yes. COMPREHENSION - SCORE: 6-LIZ EXPRESSION EXPRESSION: TYPE: Non-Vocal EXPRESSION - STEP 1: Does the patient require help from a person or device, or need extra time expressing complex and abst ract ideas (such as current events, finances, discharge planning, medical issues, relationships, etc) ? No. EXPRESSION - STEP 2: Does the patient need extra time, require an assistive device (such as augmentive communication syste m or a communication board), OR does s/he have mild difficulty expressing complex and abstract ideas (including mild dysarthria or mild word-find problems)? No. EXPRESSION - SCORE: 7-IND SOCIAL INTERACTION: SOCIAL INTERACTION - STEP 1: Does the patient require a helper to interact with others in social and therapeutic situations? No. SOCIAL INTERACTION - STEP 2: Does the patient need extra time in social situations, OR does s/he interact with staff, other patien ts, and family members ONLY in structured environments, OR does s/he require medication for social in teraction? No. SOCIAL INTERACTION - SCORE: 7-IND PROBLEM SOLVING: PROBLEM SOLVING - STEP 1: Does the patient need help from a person or device, or need extra time to solve complex problems such as managing a checking account or confronting interpersonal problems? No. PROBLEM SOLVING - STEP 2: Does the patient require extra time to make decisions or solve problems, OR does s/he have slight dif ficulty reading, initiating, or self-correcting in unfamiliar situations? No. PROBLEM SOLVING - SCORE: 7-IND MEMORY: MEMORY - STEP 1: Does the patient need help from a person or device, or need extra time to remember frequently encount ered people, daily routines, and executing requests? No. MEMORY - STEP 2: Does the patient have slight difficulty recognizing frequently encountered people, daily routines, or executing requests without the need for repetition or using self-initiated or environmental cues to remember? No. MEMORY - SCORE: 7-IND SIGNATURE PANEL: The following modified sections: Eating - Score, Grooming - Score, Bathing - Score, Dressing - Upper Body - Score, Dressing - Lower Body - Score, Toileting - Score, Transfers: Bed, Chair, Wheelchair - S core, Transfers: Toilet - Score, Transfers: Shower - Score, Transfers: Tub - Score, Comprehension - S core, Expression - Score, Social Interaction - Score, Problem Solving - Score, Memory - Score were [e lectronically] signed by JUSTIN Church on TueOct 04 2018 12:28:[address] [facility]-0500 ([facility] Time)
[2018-10-04] MEDS: METHOCARBAMOL 750 MG TAB PO PRN (19:10)
[2018-10-04] MEDS: DOCUSATE NA/SENNA CONC 1 TAB PO SCH (19:11)
[2018-10-04] MEDS: TEMAZEPAM 15 MG CAP PO PRN (21:25)
[2018-10-05] MEDS: TRAMADOL HCL 50 MG TAB PO PRN ×4 (01:51→16:24)
[2018-10-05] MEDS: HYDROCODONE/APAP 10/325 TAB PO PRN ×3 (05:01→14:54)
[2018-10-05 07:11] VITALS: BP 147/80; TEMP 97
[2018-10-05] MEDS: MELOXICAM 7.5 MG TAB PO SCH (08:00)
[2018-10-05] MEDS: APIXABAN 2.5 MG TABLET PO SCH (08:13)
[2018-10-05] MEDS: FE SULF/FA/VIT B COMP & C TAB PO SCH (08:13)
[2018-10-05] MEDS: DOCUSATE NA 100 MG CAP PO SCH (08:13)
[2018-10-05] MEDS: MULTIVITAMIN TAB PO SCH (08:13)
[2018-10-05] MEDS: GABAPENTIN 300 MG CAP PO SCH (08:13)
[2018-10-05] MEDS: FERROUS SULFATE 325 MG TAB PO SCH (08:13)
[2018-10-05] MEDS: PROMOD 30 ML DOSE PO SCH (08:16)
--- NOTE | 2018-10-05 10:15 | P.RH.PN ---
Estimated Length of Stay: 12 Expected Discharge Date: 10/05/18 Discharge Disposition Plan: Home Family Support: Yes Mcfp Goal: Mobility Vital Signs: Last Vital Signs Temp 97 F 10/05/18 07:10 Pulse 85 10/05/18 07:10 Resp 16 10/05/18 10:00 BP 147/80 H 10/05/18 07:10 Pulse Ox 95 10/05/18 10:00 Laboratory: Laboratory Last Values WBC 6.5 K/uL (4.3-10.9) 10/04/18 05:47 RBC 3.56 M/uL (3.86-4.86) L 10/04/18 05:47 Hgb 12.3 g/dL (12.0-15.0) 10/04/18 05:47 Hct 35.7 % (36.0-45.0) L 10/04/18 05:47 MCV 100.3 fL (80-100) H 10/04/18 05:47 MCH 34.5 pg (27.0-35.0) 10/04/18 05:47 MCHC 34.4 g/dL (32.0-36.0) 10/04/18 05:47 RDW 13.2 % (12.1-15.2) 10/04/18 05:47 Plt Count 430 K/uL (152-406) H D 10/04/18 05:47 MPV 8.7 fL (7.6-11.3) D 10/04/18 05:47 Neutrophils % 54.5 % (41.7-73.7) 10/04/18 05:47 Lymphocytes % 28.2 % (15.3-44.8) 10/04/18 05:47 Monocytes % 10.2 % (3.3-12.3) 10/04/18 05:47 Eosinophils % 6.1 % (0-4.4) H 10/04/18 05:47 Basophils % 1.0 % (0-1.3) 10/04/18 05:47 Absolute Neutrophils 3.6 K/uL (1.8-8.0) 10/04/18 05:47 Absolute Lymphocytes 1.8 K/uL (0.7-4.9) 10/04/18 05:47 Absolute Monocytes 0.7 K/uL (0.1-1.3) 10/04/18 05:47 Absolute Eosinophils 0.4 K/uL (0-0.5) 10/04/18 05:47 Absolute Basophils 0.1 K/uL (0-0.5) 10/04/18 05:47 Morphology Comment Not seen (NOT SEEN) 09/28/18 06:13 Sodium 137 mmol/L (136-145) 10/04/18 05:47 Potassium 4.3 mmol/L (3.5-5.1) 10/04/18 05:47 Chloride 103 mmol/L (98-107) 10/04/18 05:47 Carbon Dioxide 29 mmol/L (21-32) 10/04/18 05:47 BUN 12 mg/dL (7-18) 10/04/18 05:47 Creatinine 0.67 mg/dL (0.55-1.3) 10/04/18 05:47 Estimated GFR > 90 mL/min (=/>90) 10/04/18 05:47 Glucose 112 mg/dL (74-106) H 10/04/18 05:47 Calcium 9.1 mg/dL (8.5-10.1) 10/04/18 05:47 Magnesium 2.0 mg/dL (1.8-2.4) 10/04/18 05:47 Albumin 3.4 g/dL (3.4-5.0) 10/04/18 05:47 Prealbumin 22.4 mg/dL (20-40) 10/04/18 05:47 Urine Color Yellow 09/26/18 18:00 Urine Appearance Clear 09/26/18 18:00 Urine pH 7.0 (5.0-7.0) 09/26/18 18:00 Ur Specific [place] 1.010 (1.005-1.030) 09/26/18 18:00 Urine Ketones Negative (NEG) 09/26/18 18:00 Urine Blood Negative (NEG) 09/26/18 18:00 Urine Nitrite Negative (NEG) 09/26/18 18:00 Urine Bilirubin Negative (NEG) 09/26/18 18:00 Urine Urobilinogen 0.2 mg/dL (0.2-1.0) 09/26/18 18:00 Ur Leukocyte Esterase Trace (NEG) H 09/26/18 18:00 Urine RBC <5 /HPF (NONE SEEN) 09/26/18 18:00 Urine WBC <5 /HPF (<5) 09/26/18 18:00 Ur Squamous Epith Cells 5-10 /HPF (NONE SEEN) H 09/26/18 18:00 Ur Urothelial Cells Cancelled 09/25/18 18:00 Calcium Oxalate Crystal Cancelled 09/25/18 18:00 Uric Acid Crystals Cancelled 09/25/18 18:00 Triple Phos Crystals Cancelled 09/25/18 18:00 Other Crystals Cancelled 09/25/18 18:00 Amorphous Sediment Cancelled 09/25/18 18:00 Glitter Cells Cancelled 09/25/18 18:00 Urine Bacteria <20 /HPF (<20) 09/26/18 18:00 Hyaline Casts Cancelled 09/25/18 18:00 Fine Granular Casts Cancelled 09/25/18 18:00 Coarse Granular Casts Cancelled 09/25/18 18:00 Waxy Casts Cancelled 09/25/18 18:00 RBC Casts Cancelled 09/25/18 18:00 WBC Casts Cancelled 09/25/18 18:00 Urine Mucus Cancelled 09/25/18 18:00 Urine Other Cancelled 09/25/18 18:00 Urine Trichomonas Cancelled 09/25/18 18:00 Urine Yeast Cancelled 09/25/18 18:00 Ur Yeast w Hyphae Cancelled 09/25/18 18:00 Urine Yeast (Budding) Cancelled 09/25/18 18:00 Urine Sperm Cancelled 09/25/18 18:00 Urine Culture Reflexed Not needed 09/26/18 18:00 Urine Total Volume Cancelled 09/25/18 18:00 Urine Glucose Negative (NEG) 09/26/18 18:00 Urine Total Protein Negative (NEG) 09/26/18 18:00 Weight: 143 lb 12.8 oz Wound Present: Yes Closed Surgical Incision Present: Yes Negative Pressure Wound Therapy Present: No Physician Update: Patient doing really well; to discharge today Medical Issues: DVT Prophylaxis - Eliquis 2.5mg BID Pain Issues: Tramadol 50mg Q4H PO PRN. Frederic 10/325mg Q4H PO PRN Comment: Right upper arm swelling-better s/p post pneumonia vaccine shot from [facility]. Functional Improvement Occupational Therapy: Pt can benifit with further therapy to address pt's overall weakness. Cont to strengthen pt's UB strength, and cont to increase pt's static/dynamic standing balance for adl's and Iadls. cont to increase pt's safety and energy conservation techniques due to pt's spinal precautions. 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 Please see the Rehabilitation Signature page for all necessary signatures.
--- NOTE | 2018-10-05 12:14 | R.DS ---
FACILITY [facility] MR# [id number] NAME KWAN AVILA ADDRESS [address] [facility] [place] [address] PHONE DATE OF 1960 AGE 58 SSN# [id number] GENDER Female DEXTERITY Right-handed MARITAL STATUS RACE White ENCOUNTER PHYSICIAN Dr. Diane Sexton REFERRING DOCTOR Dr Herrera REFERRING FACILITY 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 DATE OF ADMISSION 09/26/2018 17:45 (CDT) MEDICATION ALLERGIES: No Known Drug Allergies (NKDA) ENVIRONMENTAL ALLERGIES: None Known - Substance Allergies None Known - Other Allergies None Known DISCHARGE MEDICATIONS: Other- See attached MAR (Medication Administration Record) [id number].pdf. NURSING: - Shower allowing shower - Bladder care per protocol - Skin care per protocol ACTIVITIES OOB only with supervision THERAPIES: - Dietary and Nutrition Adequate Nutrition Nutritional Education Nutritional Supplements HISTORY OF PRESENT ILLNESS: Patient has realistic goal of being discharged at assistance level 6-Catarina to reside at Home with Fam oracio/Relatives. HOSPITAL COURSE: DIET - LIQUID TEXTURE: On 09/26/2018 Pt was upgraded to Regular Diet - Liquid Texture. DIET - SOLID TEXTURE: On 09/26/2018 Pt was upgraded to Regular Diet - Solid Texture. DIET TYPE: On 09/26/2018 Pt was upgraded to Regular Diet Type. TUBE FEED: On 09/26/2018 Pt was changed to N/A Tube Feed. DISCHARGE PHYSICAL EXAM - Gen Alert and awake Lying in bed No apparent distress Oriented to: person, time, and place - Skin No breakdown No abnormalities - Eyes No abnormalities - ENMT No abnormalities - Neck No abnormalities - CVS RRR - Chest No abnormalities - Resp Clear to auscultation - Abd Soft - GI nondistended Deferred - No abnormalities - Ext No significant edema - MSK 4/5 weakness in all extremities. - Neuro 4/5 strength in both lower extremities. - Psych No abnormalities FUNCTIONAL STATUS: - Self-Care A. Eating 5-sup 5-sup B. Grooming 5-sup 5-sup C. Bathing 3-modA 3-modA D. Dressing - Upper 3-modA 3-modA E. Dressing - Lower 3-modA 3-modA F. Toileting 3-modA 3-modA - Sphincter Control G. Bladder control 6-Catarina 6-Catarina H. Bowel control 6-Catarina 6-Catarina - Transfers Control I. Bed/Chair/Wheelchair 3-modA 3-modA J. Toilet 3-modA 3-modA K. Tub/Shower 3-modA 3-modA - Locomotion L. Walk/Wheelchair (W) 3-modA 3-modA M. Stairs 0-ADNO 0-ADNO - Communication N. Comprehension (B) 5-sup 5-sup O. Expression (B) 5-sup 5-sup - Social Cognition P. Social Interaction 5-sup 5-sup Q. Problem Solving 5-sup 5-sup R. Memory 6-Catarina 6-Catarina - Endurance Good - Balance Good - Safety Awareness Good DISCHARGE PLAN, FOLLOW UP CARE PROVISIONS: - Estimated Length of Stay (days) 27. - Consensus on plan Discharge plan has been discussed with primary caregiver. Patient/Family is in agreement with the paul n. Primary caregiver is in agreement with the plan. - Patient/Family Goals Return home with assistance. - Planned Living Setting Upon Discharge Home, to live with Family/Relatives. - N/A Patient is a 58 year old female that lived in a one story home wtih her . Other than being in severe pain, she was very active. She tried multiple areas of improvement and was unsuccessful, the refore Dr. Herrera performed surgery that included a fusion and decompression. The patient tolerated th e surgery very well but to to the debilitation prior to the surgery and the surgery itself, it is nec essary for the patient to come to rehab in order to reagin her strength prior to discharging home. S he is now medically stable but in need of 24-hour nursing, doctor supervision and to participate in 3 hours of therapy a day/15 hours per week and receive care with an intensive interdisciplinary approach. SIGNATURE PANEL: (CDT)
== END 2018-10-05 16:45 | disposition home or self-care (01) | DRG 552 ==
LOC: 5TH 17:44
PROVIDERS: ADMIT Psychiatry & Neurology Neurology with Special Qualifications in Child Neurology; ATTEND Psychiatry & Neurology Neurology with Special Qualifications in Child Neurology
DX: M43.16 Spondylolisthesis, lumbar region (principal); M47.9 Spondylosis, unspecified; M48.061 Spinal stenosis, lumbar region without neurogenic claudication; Z85.05 Personal history of malignant neoplasm of liver; K21.9 Gastro-esophageal reflux disease without esophagitis
CPT/HCPCS: 36415; 80048; 81001; 82040; 83735; 84134; 85025; 87086; 87088; 97110; 97112; 97116; 97150; 97162; 97167; 97530; 97542